=== PATIENT | male | born 1950 | race Caucasian/White ===

== ENCOUNTER 2024-04-05 20:55 | Inpatient (IN) | payer OTHER ==
[2024-04-05] MEDS ORDERED: ONDANSETRON 4 MG/2 ML VIAL ONE (22:04)
[2024-04-05 22:11] LABS: Absolute Eosinophils 0.2 K/uL (0-0.5); Absolute Lymphocytes (CBC) 1.3 K/uL (0.7-4.9); Absolute Monocytes 0.8 K/uL (0.1-1.3); Absolute Neutrophil 3.6 K/uL (1.8-8.0); Basophils % 0.3 % (0-1.3); Eosinophils % 4.1 % (0-4.4); Hematocrit 43.3 % (39.6-49.0); Hemoglobin 14.7 g/dL (13.6-17.9); Lymphocytes % 22.1 % (15.3-44.8); MCH 32.2 pg (27.0-35.0); MCHC 33.8 g/dL (32.0-36.0); MCV 95.2 fL (80-100); Monocytes % 13.1 % (3.3-12.3); Neutrophils % 60.4 % (41.7-73.7); Nucleated Red Blood Cells % 0.4 % (0-0); Platelets 249 thou/uL (152-406); RBC Red Blood Cell Count 4.55 M/uL (4.33-5.43); Red Cell Distribution Width 12.8 % (12.1-15.2)
[2024-04-05 22:31] LABS: Albumin 3.8 g/dL (3.4-5.0); Albumin/Globulin Ratio 1.1 (1.1-1.8); Anion Gap 7.1 mEq/L (5.0-15.0); Bilirubin Total 0.3 mg/dL (0.2-1.0); Globulin 3.5 g/dL (2.3-3.5); Potassium 4.1 mEq/L (3.5-5.1); Protein, Total 7.3 g/dL (6.4-8.2)
[2024-04-05 23:11] LABS: Specific Gravity 1.029 (1.005-1.030); Sqamous Epithelial None Seen /HPF (None Seen); Urine Bacteria None Seen /HPF (<20); Urine Clarity Extremely Turbid (Clear); Urine Color Dark-Red (Yellow); Urine Culture Reflex Order REFLEXED; Urine Glucose Trace (Negative); Urine Microscopic Reflex YN ORDER UMIC; Urine RBC >50 /HPF (None Seen); Urine WBC >50 /HPF (<5)
[2024-04-05 23:12] LABS: Urine Bilirubin Negative (Negative); Urine Blood 3+ (OVER) (Negative); Urine Ketones Negative (Negative); Urine Nitrite Negative (Negative); Urine Protein 3+ (Negative); Urine Urobilinogen Normal (Normal); Urine pH 6.5 (5.0-7.0)
--- NOTE | 2024-04-06 00:57 | ER ---
Nurse's Notes [facility] Name: Lavell Bellamy Age: 73 yrs Sex: Male : 1950 Arrival Date: 04/05/2024 Time: 20:55 Bed 7 Private MD: Diagnosis: Gross hematuria-active bladder, bleeding Presentation: 04/05 21:10 Chief complaint: Patient states: working in the yard and house with chemicals this bm8 weekend, but at shower time tonight 1900i started urinating blood. it doesn't hurt. Coronavirus screen: Vaccine status: Patient reports receiving the 2nd dose of the covid vaccine. At this time, the client does not indicate any symptoms associated with coronavirus-19. Ebola Screen: Patient negative for fever greater than or equal to 101.5 degrees Fahrenheit, and additional compatible Ebola Virus Disease symptoms Patient denies exposure to infectious person. Patient denies travel to an Ebola-affected area in the 21 days before illness onset. No symptoms or risks identified at this time. Initial Sepsis Screen: Does the patient meet any 2 criteria? No. Patient's initial sepsis screen is negative. Does the patient have a suspected source of infection? No. Patient's initial sepsis screen is negative. Risk Assessment: Do you want to hurt yourself or someone else? Patient reports no desire to harm self or others. Onset of symptoms was April 05, 2024 at 19:00. 21:10 Method Of Arrival: Ambulatory bm8 21:10 Acuity: JOHANNY 3 bm8 Triage Assessment: 21:12 General: Appears in no apparent distress. comfortable, Behavior is calm, cooperative, bm8 appropriate for age. Pain: Denies pain. EENT: No deficits noted. No signs and/or symptoms were reported regarding the EENT system. Neuro: No deficits noted. Level of Consciousness is awake, alert, obeys commands, Oriented to person, place, time, situation. Cardiovascular: Denies chest pain, lightheadedness, Capillary refill < 3 seconds Patient's skin is warm and dry. Respiratory: Airway is patent Respiratory effort is even, unlabored, Respiratory pattern is regular, symmetrical. GI: No signs and/or symptoms were reported involving the gastrointestinal system. : Reports blood in urine. Derm: No signs and/or symptoms reported regarding the dermatologic system. Musculoskeletal: No signs and/or symptoms reported regarding the musculoskeletal system. Historical: - Allergies: 21:12 "ex wives"; bm8 - Home Meds: 21:12 valacyclovir 500 mg oral tablet daily [Active]; aspirin 81 mg Oral capsule [Active]; bm8 hydrochlorothiazide 25 mg Oral tablet [Active]; lisinopril 20 mg Oral tablet [Active]; - PMHx: 21:12 Hypertensive disorder; bm8 - PSHx: 21:12 hernia repair; bm8 - Immunization history:: Adult Immunizations up to date. - Infectious Disease History:: Denies. - Social history:: Smoking status: Patient denies any tobacco usage or history of. Patient uses alcohol, Patient/guardian denies using street drugs. Screenin:57 [facility] ED Fall Risk Assessment (Adult) History of falling in the last 3 months, pc2 including since admission No falls in past 3 months (0 pts). Abuse screen: Denies threats or abuse. Denies injuries from another. Nutritional screening: No deficits noted. Tuberculosis screening: No symptoms or risk factors identified. Assessment: 21:40 General: Appears in no apparent distress. comfortable, well groomed. Pain: Denies pain. pc2 Neuro: No deficits noted. Level of Consciousness is awake, alert, obeys commands, Oriented to person, place, time, situation, Appropriate for age Speech is normal. Cardiovascular: Denies chest pain, Capillary refill < 3 seconds Patient's skin is warm and dry. Respiratory: Airway is patent Respiratory effort is even, unlabored, Respiratory pattern is regular, symmetrical. GI: No signs and/or symptoms were reported involving the gastrointestinal system. : Urine is ortega blood, Reports noticed blood after urinating this afternoon. 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 Derm: No signs and/or symptoms reported regarding the dermatologic system. Musculoskeletal: No signs and/or symptoms reported regarding the musculoskeletal system. 22:38 Reassessment: No changes from previously documented assessment. Patient and/or family pc2 updated on plan of care and expected duration. Pain level reassessed. Patient is alert, oriented x 3, equal unlabored respirations, skin warm/dry/pink. Patient denies pain at this time. Respiratory: Airway is patent Respiratory effort is even, unlabored, Respiratory pattern is regular, symmetrical. 23:13 Reassessment: Pt ambulated to restroom at this time with steady gait. NAD noted. pc2 23:53 Reassessment: Patient appears in no apparent distress at this time. No changes from tm6 previously documented assessment. Vital Signs: 21:10 BP 188 / 92; Pulse 96; Resp 18; Temp 97.7; Pulse Ox 98% ; Weight 74.84 kg; Height 5 ft. bm8 6 in. ; Pain 0/10; 21:47 BP 157 / 92; Pulse 89; Resp 18; Pulse Ox 97% on R/A; pc2 22:38 BP 142 / 79; Pulse 85; Resp 18; Pulse Ox 95% on R/A; pc2 04/06 00:55 BP 153 / 79; Pulse 75; Resp 18; Pulse Ox 96% on R/A; pc2 01:43 BP 153 / 79; Pulse 78; Pulse Ox 98% on R/A; Pain 0/10; tm6 02:52 BP 156 / 82; Pulse 75; Resp 18; Pulse Ox 96% on R/A; pc2 04/05 21:10 Body Mass Index 26.63 (74.84 kg, 167.64 cm) bm8 04/05 21:10 Pain Scale: Adult bm8 01:43 Pain Scale: Adult tm6 ED Course: 04/05 21:01 Patient arrived in ED. ra3 21:07 Lisa Galo FNP-C [facility]. kb 21:07 Ang Corbin MD is Attending Physician. kb 21:12 Triage completed. bm8 21:12 Arm band placed on right wrist. bm8 21:34 Ophelia Manjarrez, RN is Primary Nurse. tm6 21:45 Inserted saline lock: 20 gauge in right antecubital area, using aseptic technique. pc2 Blood collected. 21:47 CBC with Diff Sent. pc2 21:47 CMP Sent. pc2 21:47 Lipase Sent. pc2 21:47 Urinalysis w/ reflexes Sent. pc2 21:57 Patient has correct armband on for positive identification. Bed in low position. Call pc2 light in reach. Side rails up X2. Provided Education on: POC and timeframe. 21:59 Primary Nurse role handed off by Ophelia Manjarrez, KATIE pc2 21:59 Sheyla bob, RN is Primary Nurse. pc2 23:43 CT Abd/Pelvis - IV Contrast Only In Process Unspecified. EDMS 04/06 00:55 Merrick Pablo MD is Hospitalizing Provider. ignacio 00:58 Ibarra cath inserted, using sterile technique, 16 Fr., by mt, balloon inflated, to tm6 gravity drainage, returned bloody urine. Patient tolerated well. Bladder irrigated via Iabrra with 1 liter normal saline returned ortega blood Patient tolerated well. 01:21 EKG done, by ED staff, reviewed by Ang Corbin MD. tm6 01:33 PT-INR Sent. pc2 01:47 Chest Single View XRAY In Process Unspecified. EDMS 02:36 Bladder irrigated via Ibarra with 1 liter normal saline returned ortega blood Patient tm6 tolerated well. 04:21 No provider procedures requiring assistance completed. Patient admitted, IV remains in tm6 place. Administered Medications: 04/05 22:08 Drug: Ondansetron IVP 4 mg IVP once; over 2 minutes Route: IVP; Site: right antecubital;pc2 22:31 Follow up: Response: No adverse reaction; Marked relief of symptoms pc2 04/06 01:20 Drug: NS 0.9% IV 1000 ml IV at 1 bolus Per protocol; 1000 mL bolus Route: IV; Rate: 1 pc2 bolus; Site: right antecubital; 04:02 Follow up: Response: No adverse reaction; IV Status: Infusion continued upon admission pc2 01:25 Drug: Rocephin IV 1 grams IV at per protocol once; Given slow IV push per pharmacy pc2 instructions Route: IV; Rate: per protocol; Site: right antecubital; 01:30 Follow up: Response: No adverse reaction; IV Status: Completed infusion; IV Intake: [id number] Medication: 04/05 21:58 VIS not applicable for this client. pc2 Intake: 04/06 01:30 IV: 10ml; Total: 10ml. pc2 Outcome: 00:57 Decision to Hospitalize by Provider. ignacio 04:21 Admitted to Med/surg accompanied by stevie, tm6 04:21 Condition: stable 04:21 Instructed on the need for admit, 04:22 Patient left the ED. tm6 Signatures: Dispatcher [facility] Lisa Galo, MATERIAL DISPOSITION INSPECTOR-C KATIA-Ang Arthur MD MD cha Masterson, Tawney, RN RN tm6 Tierra Delgadillo ra3 Miguel Angel Chavez, RN RN bm8 Sheyla bob, RN RN pc2 Corrections: (The following items were deleted from the chart) 01:15 0616 23:53 BP 164 / 88; Pulse 86bpm; Pulse Ox 95% RA; Pain 0/10, Adult; tm6 pc2
--- NOTE | 2024-04-06 00:57 | EDPHYS ---
Physician Documentation [facility] Name: Lavell Bellamy Age: 73 yrs Sex: Male : 1950 Arrival Date: 04/05/2024 Time: 20:55 Bed 7 Private MD: ED Physician Ang Corbin HPI: 04/05 22:06 This 73 yrs old Male presents to ER via Ambulatory with complaints of Urinary Problem - kb blood in urine. 22:06 Patient is a 73-year-old male who presents for hematuria that started just prior to kb arrival. Denies dysuria, abdominal pain, flank pain, fever. States this is never happened before. Reports he did notice some nausea and decreased appetite at dinner. Historical: - Allergies: 21:12 "ex wives"; bm8 - Home Meds: 21:12 valacyclovir 500 mg oral tablet daily [Active]; aspirin 81 mg Oral capsule [Active]; bm8 hydrochlorothiazide 25 mg Oral tablet [Active]; lisinopril 20 mg Oral tablet [Active]; - PMHx: 21:12 Hypertensive disorder; bm8 - PSHx: 21:12 hernia repair; bm8 - Immunization history:: Adult Immunizations up to date. - Infectious Disease History:: Denies. - Social history:: Smoking status: Patient denies any tobacco usage or history of. Patient uses alcohol, Patient/guardian denies using street drugs. ROS: 22:06 Constitutional: As per HPI kb Exam: 22:06 Constitutional: This is a well developed, well nourished patient who is awake, alert, kb and in no acute distress. Head/Face: Normocephalic, atraumatic. ENT: Moist Mucous membranes Cardiovascular: Regular rate Respiratory: Respirations even and unlabored. No increased work of breathing. Talking in full sentences Abdomen/GI: Soft, non-tender. No distention Skin: Warm, dry with normal turgor. Normal color. MS/ Extremity: Pulses equal, no cyanosis. Neurovascular intact. Full, normal range of motion. Neuro: Awake and alert, GCS 15, oriented to person, place, time, and situation. Moves all extremities. Normal gait. 04/06 01:48 ECG was reviewed by the Attending Physician. [facility] Vital Signs: 04/05 21:10 BP 188 / 92; Pulse 96; Resp 18; Temp 97.7; Pulse Ox 98% ; Weight 74.84 kg; Height 5 ft. bm8 6 in. ; Pain 0/10; 21:47 BP 157 / 92; Pulse 89; Resp 18; Pulse Ox 97% on R/A; pc2 22:38 BP 142 / 79; Pulse 85; Resp 18; Pulse Ox 95% on R/A; pc2 04/06 00:55 BP 153 / 79; Pulse 75; Resp 18; Pulse Ox 96% on R/A; pc2 01:43 BP 153 / 79; Pulse 78; Pulse Ox 98% on R/A; Pain 0/10; tm6 02:52 BP 156 / 82; Pulse 75; Resp 18; Pulse Ox 96% on R/A; pc2 04/05 21:10 Body Mass Index 26.63 (74.84 kg, 167.64 cm) bm8 04/05 21:10 Pain Scale: Adult bm8 01:43 Pain Scale: Adult tm6 MDM: 04/05 21:07 Patient medically screened. 04/06 00:48 Data reviewed: vital signs, nurses notes. Transition of care: After a detail discussion kb of the patient's case, care is transferred to Ang Corbin MD. 04/05 21:18 Order name: CBC with Diff; Complete Time: 22:24 kb 04/05 21:18 Order name: CMP; Complete Time: 22:58 kb 04/05 21:18 Order name: Lipase; Complete Time: 22:58 kb 04/05 21:18 Order name: Urinalysis w/ reflexes; Complete Time: 23:15 kb 04/05 23:15 Order name: Urine Culture [facility] 04/06 01:00 Order name: PT-INR [facility] 04/06 02:25 Order name: Urinalysis w/ reflexes EDDE 04/06 02:25 Order name: CBC with Automated Diff EDDE 04/06 02:25 Order name: CBC with Automated Diff [facility] 04/06 02:25 Order name: Comprehensive Metabolic Panel [facility] 04/06 02:25 Order name: Comprehensive Metabolic Panel [facility] 04/05 21:20 Order name: CT Abd/Pelvis - IV Contrast Only 04/06 01:00 Order name: Chest Single View XRAY [facility] 04/06 02:24 Order name: CONS Physician Consult [facility] 04/05 21:18 Order name: IV Saline Lock; Complete Time: 21:47 kb 04/05 21:18 Order name: Labs collected and sent; Complete Time: 21:47 kb 04/06 00:55 Order name: Misc. Order: irrigate cunha until clear; Complete Time: 02:36 ignacio 04/06 01:00 Order name: EKG - Nurse/Tech; Complete Time: 01:21 ignacio 04/06 01:00 Order name: NPO; Complete Time: 01:34 ignacio EC:48 Rate is 72 beats/min. Rhythm is regular. QRS [place] is Normal. LA interval is normal. QRS ignacio interval is normal. QT interval is normal. No Q waves. T waves are Normal. No ST changes noted. Clinical impression: Normal ECG and No evidence of ischemia. Interpreted by me. Reviewed by me. Administered Medications: 04/05 22:08 Drug: Ondansetron IVP 4 mg IVP once; over 2 minutes Route: IVP; Site: right antecubital;pc2 22:31 Follow up: Response: No adverse reaction; Marked relief of symptoms pc2 04/06 01:20 Drug: NS 0.9% IV 1000 ml IV at 1 bolus Per protocol; 1000 mL bolus Route: IV; Rate: 1 pc2 bolus; Site: right antecubital; 04:02 Follow up: Response: No adverse reaction; IV Status: Infusion continued upon admission pc2 01:25 Drug: Rocephin IV 1 grams IV at per protocol once; Given slow IV push per pharmacy pc2 instructions Route: IV; Rate: per protocol; Site: right antecubital; 01:30 Follow up: Response: No adverse reaction; IV Status: Completed infusion; IV Intake: [id number] Disposition: 01:47 Co-signature as Attending Physician, Ang Corbin MD I agree with the assessment and ignacio plan of care. Disposition Summary: 04/06/24 00:57 Hospitalization Ordered Notes: Hospitalization Status: Inpatient Admission ignacio Provider: Merrick aPblo cha Location: Telemetry/MedSurg (Inpatient) ignacio Condition: Stable ignacio Problem: new ignacio Symptoms: have improved ignacio Bed/Room Type: Standard ignacio Room Assignment: 220(04/06/24 02:45) kmf Diagnosis - Gross hematuria - active bladder, bleeding ignacio Forms: - Medication Reconciliation Form ignacio - SBAR form ignacio - Leadership Thank You Letter ignacio Signatures: Dispatcher [employer] Lisa Hays FNP-C ORIENTOR-Ang Arthur MD MD cha Forrester, Kelsey Maroul [facility] Miguel Angel Chavez, RN RN bm8 Sheyla bob, RN RN pc2 Corrections: (The following items were deleted from the chart) 04/05 22:07 22:06 Patient is a 73-year-old male who presents for hematuria that started just prior kb to arrival. Denies dysuria, abdominal pain, flank pain, fever. States this is never happened before.. kb 04/06 01:01 01:01 PROTIME (+INR)+COAG.LAB.BRZ ordered. EDMS EDMS 01:01 01:01 Chest Single View+RAD.RAD.BRZ ordered. EDMS EDMS 02:45 00:57 ignacio rojas
[2024-04-06] MEDS ORDERED: CEFTRIAXONE 1000 MG/VIAL ONE (01:03)
[2024-04-06] MEDS ORDERED: NA CHLORIDE 0.9% 1,000 ML ONE (01:04)
[2024-04-06 02:07] LABS: PT Prothrombin Time 10.8 SECONDS (9.5-12.5); Protime INR 0.98
[2024-04-06] MEDS ORDERED: ONDANSETRON 4 MG/2 ML VIAL IV PRN (02:19)
--- NOTE | 2024-04-06 02:24 | P.HP ---
Certification for Inpatient Patient admitted to: Inpatient With expected LOS: >2 Midnights Practitioner: I am a practitioner with admitting privileges, knowledge of patient current condition, hospital course, and medical plan of care. Services: Services provided to patient in accordance with Admission requirements found in Title 42 Section 412.3 of the Code of Federal Regulations Patient History Date of Service: 04/06/24 Reason for admission: Hematuria History of Present Illness: 73 yrs old Male with past medical history of hypertension, and hyperlipidemia who was brought to ER with hematuria. Patient denies any abdominal pain or any trauma. Does not take any at that blood thinners other than aspirin 81. Denies any chest pain or shortness of breath. Started all of a sudden as he was moving the yard . Did not have any dysuria. No fever or chills. No recent travel. Patient noticed blood-tinged urine in the commode and was brought to ER. Patient states that he has some nausea but no vomiting. Patient was assessed in the ER and was admitted for further management of gross hematuria Allergies No Known Allergies Allergy (Unverified 04/06/24 03:02) Home medications list reviewed: Yes Home Medications: Aspirin [Aspirin EC 81 MG] 1 tab PO DAILY 04/06/24 Lisinopril [Zestril] 20 mg PO DAILY 04/06/24 Valacyclovir [Valtrex*] 1 tab PO DAILY 04/06/24 hydroCHLOROthiazide [Hydrodiuril] 25 mg PO DAILY 04/06/24 - Past Medical/Surgical History Past Medical History: Reviewed- Non-Contributory -: Hypertension Past Surgical History: Reviewed- Non-Contributory - Family History Family History: Reviewed- Non-Contributory - Social History Smoking Status: Current some day smoker Review of Systems 10-point ROS is otherwise unremarkable Physical Examination - Vital Signs Temperature: 97.4 F Blood Pressure: 180/82 Pulse: 76 Respirations: 18 Pulse Ox (%): 94 - Physical Exam General: Alert, In no apparent distress, Oriented x3, Obese HEENT: Atraumatic, Normocephalic Neck: Supple, 2+ carotid pulse no bruit Respiratory: Clear to auscultation bilaterally, Normal air movement Cardiovascular: No edema, Normal pulses, Regular rate/rhythm, Normal S1 S2 Capillary refill: <2 Seconds Gastrointestinal: Soft and benign, W/out hepatosplenomegaly, No ascites, No tenderness Musculoskeletal: No clubbing, No swelling Integumentary: No rashes, No breakdown Neurological: Normal speech, Normal strength at 5/5 x4 extr, Sensation intact, Cranial nerves 3-12 intact, Normal reflexes 2+ Lymphatics: No axilla or inguinal lymphadenopathy Urinary: Ibarra catheter - Studies Laboratory Data (last 24 hrs) 04/06/24 04/05/24 04/05/24 01:20 21:45 21:45 WBC 5.90 Hgb 14.7 Hct 43.3 Plt Count 249 PT 10.8 INR 0.98 Sodium 139 Potassium 4.1 BUN 29 H Creatinine 1.09 Glucose 116 H Total Bilirubin 0.3 AST 12 L ALT 31 Alkaline Phosphatase 63 Lipase 65 Assessment and Plan - Problems (Diagnosis) (1) Hematuria Current Visit: Yes Status: Acute Plan: Hematuria Ibarra was placed ER already consulted Dr. Garcia Will keep n.p.o. for now IV fluids H&H monitor serially Transfuse as needed CT abdomen pelvis pending Will add on Rocephin for possible UTI Will obtain urine culture Hypertension Continue home medications and titrate as needed GI/DVT prophylaxis Advanced directive full code Discharge Plan: Home Plan to discharge in: 48 Hours - Advance Directives Does patient have a Living Will: No Does patient have a Durable POA for Healthcare: No - Code Status/Comfort Care Code Status: Full Code Time Spent Managing Pts Care (In Minutes): 48
[2024-04-06] MEDS: CEFTRIAXONE 1,000 MG in NA CHLORIDE 0.9% 50 ML IVPB SCH ×2 (02:25→20:11)
[2024-04-06] MEDS: NA CHLORIDE 0.9% 1,000 ML IV SCH (03:00)
[2024-04-06] MEDS: ACETAMINOPHEN 325 MG TABLET PO PRN (03:01)
[2024-04-06] MEDS ORDERED: ACETAMINOPHEN 325 MG TABLET ONE (03:03)
[2024-04-06 05:34] VITALS: BMI 26.6
[2024-04-06] MEDS: CEFTRIAXONE 1,000 MG in NA CHLORIDE 0.9% 50 ML IVPB ONE (05:44)
--- NOTE | 2024-04-06 10:25 | RAD REPORT ---
EXAM DESCRIPTION: ADDENDUM #1 THIS REPORT CONTAINS FINDINGS THAT MAY BE CRITICAL TO PATIENT CARE: I communicated the above findings by telephone with Dr. Ang Corbin on 04/06/2024 12:03 AM CDT who demonstrated understanding of the above finding(s)/recommendation(s). Electronically signed by: January Menard MD 04/06/2024 12:03 AM CDT RP End of Addendum EXAM: CT Abdomen and Pelvis With Intravenous Contrast CLINICAL HISTORY: The patient is 73 years old and is Male; HEMATURIA TECHNIQUE: Axial computed tomography images of the abdomen and pelvis with intravenous contrast. S agittal and coronal reformatted images were created and reviewed. This CT exam was performed using one or more of the following dose reduction techniques: automated exposure control, adjustment of t he mA and/or kV according to patient size, and/or use of iterative reconstruction technique. COMPARISON: No relevant prior studies available. FINDINGS: LUNG BASES: Unremarkable. No mass. No consolidation. PLEURAL SPACE: Bilateral calcified pleural plaques are present. ABDOMEN: LIVER: The liver is enlarged and mildly fatty. GALLBLADDER AND BILE DUCTS: The gallbladder is contracted. No calcified gallstones or ductal dila tation is seen. PANCREAS: Mild fatty infiltration of pancreas is present. There is no ductal dilatation. SPLEEN: Unremarkable. ADRENALS: Unremarkable. No mass. KIDNEYS AND URETERS: Unremarkable. The kidneys enhance symmetrically. No obstructing renal or ure teral calculus is seen. No hydronephrosis or hydroureter. No perinephric fluid or stranding. On delay ed images, contrast is seen throughout the ureters. STOMACH AND BOWEL: The stomach is distended with food contents and air. The small bowel is relati vely normal in caliber. A moderate amount of stool is present throughout the colon. There is no mucos al thickening or evidence of obstruction. PELVIS: APPENDIX: The appendix is normal in caliber without surrounding inflammation. BLADDER: Large amount of high-density material is noted within the bladder with suggestion of aviva sh of contrast. REPRODUCTIVE: Unremarkable as visualized. ABDOMEN and PELVIS: INTRAPERITONEAL SPACE: Unremarkable. No free air. No significant fluid collection. BONES/JOINTS: Bilateral pars defects are present at L5 with grade 1 anterolisthesis. Minimal dege nerative change is noted. SOFT TISSUES: There are small bilateral fat containing inguinal hernias. VASCULATURE: Atherosclerosis of the vasculature is present. The vessels are normal in caliber. No abdominal aortic aneurysm. LYMPH NODES: Unremarkable. No enlarged lymph nodes. IMPRESSION: High-density material within the bladder with suggestion of blush of contrast. Findings suggest blood products with possible active bleeding. A discrete mass is not seen though limited in e valuation given the significant amount of blood products present. Underlying mass is within the diffe rential. Recommend urology follow-up. Electronically signed by: January Menard MD 04/05/2024 11:58 PM CDT RP Due to temporary technical issues with the PACS/Fluency reporting system, reports are being signed by the in house radiologist without review as a courtesy to ensure prompt reporting. The interpreting r adiologist is fully responsible for the content of the report.
--- NOTE | 2024-04-06 11:13 | RAD REPORT ---
EXAM DESCRIPTION: XR Chest, 1 View CLINICAL HISTORY: The patient is 73 years old and is Male; ABDOMINAL DISTENTION TECHNIQUE: Frontal view of the chest. COMPARISON: No relevant prior studies available. FINDINGS: Lungs: Suggestion of a 7 mm calcified granuloma overlying the upper right lung. No consolidation. Pleural space: Blunting of the right costophrenic angle which may indicate a right pleural effusi on. The left costophrenic angle is partially visualized. No pneumothorax. Heart: Unremarkable. Mediastinum: Unremarkable. Normal mediastinal contour. Bones/joints: No acute findings. IMPRESSION: Blunting of the right costophrenic angle which may indicate a right pleural effusion. Electronically signed by: Demetrius Davis MD 04/06/2024 02:08 AM CDT RP 8 Due to temporary technical issues with the PACS/Fluency reporting system, reports are being signed by the in house radiologist without review as a courtesy to ensure prompt reporting. The interpreting r adiologist is fully responsible for the content of the report.
--- NOTE | 2024-04-06 14:52 | EKG ---
Test Date: 2024-04-06 Test Time: 01:11:11 Personnel Records Clerk: BERNARD MEASUREMENT RESULTS: Intervals: Rate: 72 TN: 166 QRSD: 92 QT: 380 QTc: 416 [place]: P: 63 TN: 166 QRS: 23 T: 18 INTERPRETIVE STATEMENTS: Normal sinus rhythm Normal ECG No previous ECG available for comparison Electronically Signed On 04-06-24 14:50:43 CDT by Jeremiah Reza
--- NOTE | 2024-04-06 20:06 | P.PN ---
Date of Service: 04/06/24 Patient seen and examined. Ibarra catheter is in place. He still has hematuria but no clots. No retention at the moment. Patient denies any pain. Case discussed with Dr. Garcia who recommend outpatient follow-up if no acute retention or drop in hemoglobin. Monitor H&H Maintain Ibarra catheter Empiric IV Rocephin. IV hydration Monitor urine output. Waiting for hematuria to clear for discharge.
[2024-04-07 07:12] LABS: Absolute Eosinophils 0.1 K/uL (0-0.5); Absolute Lymphocytes (CBC) 0.8 K/uL (0.7-4.9); Absolute Monocytes 0.7 K/uL (0.1-1.3); Basophils % 0.7 % (0-1.3); Eosinophils % 1.9 % (0-4.4); Hematocrit 35.8 % (39.6-49.0); Hemoglobin 12.3 g/dL (13.6-17.9); Lymphocytes % 11.8 % (15.3-44.8); MCH 32.8 pg (27.0-35.0); MCHC 34.4 g/dL (32.0-36.0); MCV 95.4 fL (80-100); MPV 8.4 fL (7.6-11.3); Monocytes % 11.1 % (3.3-12.3); Neutrophils % 74.5 % (41.7-73.7); Nucleated Red Blood Cells % 0.1 % (0-0); Platelets 212 thou/uL (152-406); RBC Red Blood Cell Count 3.75 M/uL (4.33-5.43); Red Cell Distribution Width 13.2 % (12.1-15.2)
[2024-04-07 07:25] LABS: Albumin 2.9 g/dL (3.4-5.0); Anion Gap 5.2 mEq/L (5.0-15.0); Bilirubin Total 0.5 mg/dL (0.2-1.0); Globulin 2.8 g/dL (2.3-3.5); Potassium 4.2 mEq/L (3.5-5.1); Protein, Total 5.7 g/dL (6.4-8.2)
--- NOTE | 2024-04-07 10:27 | P.PN ---
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 vitals reviewed. Problem List: Hematuria Hypertension Hyperlipidemia Hematuria Presented with sudden onset hematuria that started at home spontaneously. Denies any trauma. No prior episodes. painless Denies dysuria/fever/chills. Reports some nausea without vomiting. Ibarra placed in ED 04/06. Monitor urine output continue IV fluids Pain control continue empiric rocephin (04/06-) given rocephin in ED. urine cx (04/05): prelim no growth afebrile, no leukocytosis Urology consulted to eval today Hypertension Hyperlipidemia confirm home meds, restart as appropriate VTE: Ambulatory Code: Full Dispo: Home, ~1-2 days Pending urology recs / hematuria improves anticipate will need cystoscopy outpatient
[2024-04-07] MEDS: LIDOCAINE JELLY 2% 5 ML SYRINGE TOP ONE (14:53)
--- NOTE | 2024-04-07 15:44 | P.CNS ---
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 He denied any antecedent dysuria, fevers or chills, but he did have some nausea in the absence of vomiting. He denies any perineal pain prior to this occurring either. Social history: He worked for 29 years at [employer], to which he was exposed frequently, and he also smoked for 15 years more than 2 packs/day on average In the ER, they placed a 16 [place]utanese Ibarra catheter and decompressed his bladder, but because of the persistent gross hematuria, he was admitted. Since that t karina, he has had intermittent episodes of obstruction due to clots that is required irrigation by the floor nurses. He has been placed on ceftriaxone. 04/05/2024 CT abdomen and pelvis with IV contrast and delayed phase: Kidneys enhance symmetrically without ureteral or renal calculus, hydronephrosis or hydroureter, and no renal masses or perinephric stranding. Per the radiologist "on delayed images, contrast is seen throughout the ureters". Impression: High density material within the bladder suggestive of blush of contrast. A discrete mass is not seen though limited in evaluation because of the blood products present. 04/07/2024 WBC 6.7, hemoglobin 12.3, platelets 212, creatinine 0.86, LFTs/alk phos within normal limits 04/06/2024 INR 0.98 04/05/2024 UA micro 3+ heme, negative nitrite/leukocyte Estrace, > 50 WBCs/RBCs per hpf. Urine culture no growth to date Examination: Patient well-appearing and in no acute distress Alert, awake, oriented x 3 with some diminished hearing No dyspnea or sign of respiratory distress Abdomen nontender Genitalia: Circumcised without lesion, orthotopic meatus patent with 16 Bhutanese urethral Ibarra catheter present draining dark gross hematuria. Urethral Ibarra catheter exchange and bladder irrigation procedure note: Because the 16 [place]ut[place] catheter was inadequate to adequately irrigate his bladder, I deflated the balloon and remove the 16 Bh[place]anese catheter. I then used Betadine to prep his genitalia and draped it in standard fashion before applying lidocaine intraurethrally Uro-Jet local anesthesia. I then passed a 22 Bhutanese three-way Ibarra catheter via his urethra into his bladder with ease. Thereafter, I irrigated his bladder copiously with about 1500 cc of sterile saline removing a modest amount of formed clot. Once most of the clot was removed, I aggressively irrigated the bladder to remove any residual stuck to the sidewalls of the bladder, and once I was done, the efflux of urine was crystal clear. As such, the three-way port was capped, and the catheter connected to a floor bag. Assessment and recommendation: 73-year-old physically active gentleman with hypertension, hyperlipidemia and asbestosis on ASA 81 alone, extensive chemical and smoking history (> 30 pack years) with painless gross hematuria causing clot retention in the setting of negative cultures and upper tract imaging. -At this point, would observe the patient over the course of the next 24 hours with a catheter to gravity drainage. -Should there be recurrence of significant gross hematuria, nurses may irrigate the Ibarra catheter with 60 cc NS, instilling and aspirating back to remove any clots, and repeat as necessary until the urine is light pink to clear. Should there be recurrence of gross hematuria requiring multiple manual irrigations, please notify me, and we will consider initiating CBI. The cystoscopy tubing and split-Y tubing was left in the room should that become necessary. CBI would be initiated in that case with NS only. -As long as the urine remains clear or minimally pink, a voiding trial may be accomplished tomorrow morning. To complete the voiding trial, the catheter should be retrograde filled with at least 200 cc of sterile H2O/NS until patient expresses a strong sense of urge to void (up to 400 cc max), before deflating the balloon of the 20 cc instilled and removing the catheter, leaving the instilled fluid inside. Patient should then be given a urinal and allowed to void. If he is unable to void > 60% of the volume instilled, recommend immediately replace a new 18 Bhutanese coud tipped Ibarra catheter. In that case, discharge the patient home with a catheter, initiate Flomax 0.4 mg daily, and we will follow it up as an outpatient. -Either way, the patient will require cystoscopic evaluation as an outpatient within the next 3 weeks. Allergies No Known Allergies Allergy (Unverified 04/06/24 03:02) Home Medications: Aspirin [Aspirin EC 81 MG] 1 tab PO DAILY 04/06/24 Lisinopril [Zestril] 20 mg PO DAILY 04/06/24 Valacyclovir [Valtrex*] 1 tab PO DAILY 04/06/24 hydroCHLOROthiazide [Hydrodiuril] 25 mg PO DAILY 04/06/24 - Past Medical/Surgical History Diabetic: No -: Hypertension - Social History Place of Residence: Home Physical Examination Temp Pulse Resp BP Pulse Ox 99.3 F 74 16 153/85 H 96 04/07/24 11:59 04/07/24 14:23 04/07/24 11:59 04/07/24 14:23 04/07/24 11:59 - Problems (1) Gross hematuria Current Visit: Yes Status: Acute (2) Clot retention of urine Current Visit: Yes Status: Acute (3) Stopped smoking with greater than 30 pack year history Current Visit: Yes Status: Acute Conclusions/Impression: see A&P in [facility] Critical Care: No Time Spent Managing Pts care (In Minutes): 60
[2024-04-07] MEDS: MORPHINE 4 MG/ML SYR IV PRN (20:16)
[2024-04-08 07:49] LABS: Absolute Eosinophils 0.2 K/uL (0-0.5); Absolute Lymphocytes (CBC) 0.9 K/uL (0.7-4.9); Absolute Monocytes 0.9 K/uL (0.1-1.3); Absolute Neutrophil 5.4 K/uL (1.8-8.0); Basophils % 0.7 % (0-1.3); Eosinophils % 2.1 % (0-4.4); Hematocrit 37.7 % (39.6-49.0); Hemoglobin 12.8 g/dL (13.6-17.9); Lymphocytes % 12.3 % (15.3-44.8); MCH 32.3 pg (27.0-35.0); MCHC 33.9 g/dL (32.0-36.0); MCV 95.3 fL (80-100); MPV 8.9 fL (7.6-11.3); Monocytes % 11.6 % (3.3-12.3); Neutrophils % 73.3 % (41.7-73.7); Platelets 215 thou/uL (152-406); RBC Red Blood Cell Count 3.96 M/uL (4.33-5.43)
[2024-04-08 07:50] LABS: Anion Gap 6.7 mEq/L (5.0-15.0); Magnesium 2.2 mg/dL (1.6-2.4); Potassium 3.7 mEq/L (3.5-5.1)
[2024-04-08] MEDS: hydroCHLOROthiazide 25 MG TAB PO SCH (09:13)
[2024-04-08] MEDS: VALACYCLOVIR 500 MG TAB PO SCH (09:13)
[2024-04-08] MEDS: lisinopriL 20 MG TAB PO SCH (09:13)
[2024-04-08 10:03] VITALS: O2SAT 93
[2024-04-08 11:37] VITALS: BP 151/88; TEMP 99.2
--- NOTE | 2024-04-09 06:42 | P.DS ---
Admission Date: 04/06/24 Discharge Date: 04/08/24 Disposition: ROUTINE DISCHARGE Discharge Condition: GOOD Reason for Admission: Hematuria Consultations: Urology - Dr. Garcia Brief History of Present Illness: 73 yo M, PMH: hypertension, and hyperlipidemia Patient was brought to ER with hematuria. Patient denies any abdominal pain or any trauma. Does not take any at that blood thinners other than aspirin 81. Denies any chest pain or shortness of breath. Started all of a sudden as he was moving the yard . Did not have any dysuria. No fever or chills. No recent travel. Patient noticed blood-tinged urine in the commode and was brought to ER. Patient states that he has some nausea but no vomiting. Patient was assessed in the ER and was admitted for further management of gross hematuria Hospital Course: Problem List: Spontaneous, painless Hematuria, improved Hypertension Hyperlipidemia Physician discharge instructions: Patient presented to ED with sudden onset hematuria. CT abdomen with findings to suggest blood products with possible active bleeding within the bladder. Cunha was placed in ED. He was empirically treated with IV rocephin, and remained afebrile, urine culture was without growth. No antibiotic needed on discharge, he completed 3 days total. Urology was consulted. Dr. Garcia exchanged the cunha catheter at bedside and was able to remove a significant amount of formed clot with bladder irrigation on 04/07 and hematuria cleared up. Patient had voiding trial on day of discharge and was able to void 300 ml (~85%) NS/sterile water and was minimally light pink in color initially and cleared up. Patient is to follow up with him in office within the next 3 weeks for planned cystoscopy for further evaluation of cause of bleeding. Patient was feeling better, hematuria improved and was deemed stable for discharge. Discussed may have some light pink blood tinged urine intermittently. Advised to rest / take it easy for a few days.spontan Medications: no new medications. hold aspirin for 2 days. Follow up: PCP 3-[address] Garcia within 3 weeks Please call to schedule / confirm appointments Physical Exam: GEN: Alert, oriented, NAD HEENT: Normal conjunctiva, sclera anicteric, CV: Regular rate and rhythm, no edema Pulm: Nonlabored respirations on room air, clear bilaterally ABD: soft, nontender, nondistended Neuro: Normal speech, normal affect Vital Signs/Physical Exam: Temp Pulse Resp BP Pulse Ox 99.2 F 84 19 151/88 H 95 04/08/24 11:21 04/08/24 11:21 04/08/24 11:21 04/08/24 11:21 04/08/24 11:21 Laboratory Data at Discharge: WBC 7.40 thou/uL (4.3-10.9) 04/08/24 07:12 Hgb 12.8 g/dL (13.6-17.9) L 04/08/24 07:12 Hct 37.7 % (39.6-49.0) L 04/08/24 07:12 Plt Count 215 thou/uL (152-406) 04/08/24 07:12 PT 10.8 SECONDS (9.5-12.5) 04/06/24 01:20 INR 0.98 04/06/24 01:20 Sodium 139 mEq/L (136-145) 04/08/24 07:12 Potassium 3.7 mEq/L (3.5-5.1) 04/08/24 07:12 BUN 10 mg/dL (7-18) 04/08/24 07:12 Creatinine 0.86 mg/dL (0.70-1.30) 04/08/24 07:12 Glucose 104 mg/dL (74-106) 04/08/24 07:12 Magnesium 2.2 mg/dL (1.6-2.4) 04/08/24 07:12 Total Bilirubin 0.5 mg/dL (0.2-1.0) 04/07/24 06:54 AST 13 U/L (15-37) L 04/07/24 06:54 ALT 26 U/L (16-61) 04/07/24 06:54 Alkaline Phosphatase 57 U/L (45-117) 04/07/24 06:54 Lipase 65 U/L (13-75) 04/05/24 21:45 Home Medications: Aspirin [Aspirin EC 81 MG] 1 tab PO DAILY 04/06/24 Lisinopril [Zestril] 20 mg PO DAILY 04/06/24 Valacyclovir [Valtrex*] 1 tab PO DAILY 04/06/24 hydroCHLOROthiazide [Hydrodiuril*] 25 mg PO DAILY 04/06/24 Physician Discharge Instructions: Physician discharge instructions: Patient presented to ED with sudden onset hematuria. CT abdomen with findings to suggest blood products with possible active bleeding within the bladder. Cunha was placed in ED. He was empirically treated with IV rocephin, and remained afebrile, urine culture was without growth. No antibiotic needed on discharge, he completed 3 days total. Urology was consulted. Dr. Garcia exchanged the cunha catheter at bedside and was able to remove a significant amount of formed clot with bladder irrigation on 04/07 and hematuria cleared up. Patient had voiding trial on day of discharge and was able to void 300 ml (~85%) NS/sterile water and was minimally light pink in color initially and cleared up. Patient is to follow up with him in office within the next 3 weeks for planned cystoscopy for further evaluation of cause of bleeding. Patient was feeling better, hematuria improved and was deemed stable for discharge. Medications: no new medications. hold aspirin for 2 days. Follow up: PCP 3-[address] Garcia within 3 weeks Please call to schedule / confirm appointments Followup: Mac Tompkins MD [Primary Care Provider] - 1-2 Weeks Ramesh Garcia [ACTIVE - CAN ADMIT] - (Follow up in 3 weeks) Time spent managing pt's care (in minutes): 45
== END 2024-04-08 12:25 | disposition home or self-care (01) | DRG 700 ==
LOC: ER 20:55 → 2ND 04-06 02:19
PROVIDERS: ADMIT Family Medicine; ATTEND Hospitalist
PROC: 0T9B70Z Drainage of Bladder with Drainage Device, Via Natural or Artificial Opening (ICD-10-PCS; principal; 2024-04-06)
DX: N32.89 Other specified disorders of bladder (principal); I10 Essential (primary) hypertension; E78.5 Hyperlipidemia, unspecified; F17.200 Nicotine dependence, unspecified, uncomplicated; R31.0 Gross hematuria; R33.8 Other retention of urine; Z79.82 Long term (current) use of aspirin; Z79.899 Other long term (current) drug therapy
CPT/HCPCS: 36415; 51700; 51702; 71045; 74177; 80048; 80053; 81001; 83690; 83735; 85025; 85610; 87086; 87088; 93005; 96361; 96374; 96375; 99285; J0696; J2405; J7030; Q9967

== ENCOUNTER 2024-04-09 17:14 | Emergency (ER) | payer OTHER ==
--- OUTSIDE RECORDS SUMMARY | 2024-04-09 17:19 | XMS REPORT | Continuity of Care Document ---
Author Name Unknown Address [address] [place] [address] [facility] Address [address] [place] [address] Care Team Providers Care Asset Protection Officer Name Role Phone Kervin Burns MD Primary Care Physician KERVIN BURNS Attending Clinician UnaShade Salinas RN Attending Clinician Unavailable Kervin Burns MD Attending Clinician + [phone] Ronak Smith Attending Clinician [phone] Bill Fairbanks MD Attending Clinician [phone] BILL FAIRBANKS Attending Clinician Unavailabl e BILL FAIRBANKS Attending Clinician Unavailabl e Doctor Unassigned, [place] Attending Clinician U Alexx Martinez MD Attending Clinician [phone] ALEXX GEE Attending Clinician Unavailable MATT CANALES Attending Clinician UnavailStella Feliz DO Attending Clinician [phone] Олег Raymond - Fer Attending Clinician Unavailable Emma Vallecillo MD Attending Clinician EMMA VALLECILLO Attending Clinician Lisa Brijesh Turner MD Attending Clinician [phone] BRIJESH TINEO Attending Clinician Unavailable Unknown, Attending Attending Clinician Unavailab chace Rm, Adc Surg Spec Procedure Attending Clinician Unavailable Payers Payer Name Policy Type Policy Number Effective Date Expirati on Date Source [employer] [place]MI[place] H[place] [id number] 2022 00:00:00 Problems Condition Name Condition Details Condition Category Status Onset Date Resolution Date Last Treatment Date Treating Clinician Comments Source Erectile dysfunctio n Erectile dysfunctio n Disease Active 01-10 00:00: 00 [facility] Essential hypertensi on Essential hypertensi on Disease Active 01-10 00:00: 00 [facility] Allergies, Adverse Reactions, Alerts Allergy Name Allergy Type Status Severity Reaction(s) Onset Date Inactive Date Treating Clinician Comments Source NO KNOWN ALLERGIE S Drug Class Active [facility] Social History Social Habit Start Date Stop Date Quantity Comments Source [facility] Alcohol intake 2024-01-29 00:00:00 2024-01-29 00:00:00 0 /d [facility] [place] Alcoholic beverage intake 2024-01-29 00:00:00 2024-01-29 00:00:00 0 /d [facility] [place] History of Social function 2023-09-05 00:00:00 2023-09-05 00:00:00 [facility] [place] Exposure to SARS-CoV-2 (event) 2023-02-18 00:00:00 2023-02-28 09:31:00 Not sure [facility] [place] Tobacco use and exposure 2016-01-11 00:00:00 2016-01-11 00:00:00 Smokeless tobacco non-user [facility] [place] Sex assigned at 1950 00:00:00 1950 00:00:00 [facility] [place] Smoking Status Start Date Stop Date Source Never smoked tobacco [facility] Medications Ordered Medication Name Filled Medication Name Start Date Stop Date Current Medication? Ordering Clinician Indication Dosage Frequency Signature (SIG) Comments Components Source valACYclovi r 500 mg tablet 03-24 00:00: 00 Yes [id number] 500mg Take 1 tablet by mouth in the morning. [facility] valACYclovi r 500 mg tablet 03-23 00:00: 00 Yes [id number] 500mg Take 1 tablet by mouth in the morning. [facility] hydroCHLORO thiazide 25 mg tablet 3-06 00:00: 00 Yes [id number] 25mg Take 1 tablet by mouth in the morning. [facility] lisinopriL 20 mg tablet -06 00:00: 00 Yes [id number] 20mg Take 1 tablet by mouth in the morning. [facility] triamcinolo ne acetonide (KENALOG) injection 40 mg 2022-10-16 20:30: 00 09-05 19:17 :00 No [id number] 40mg [facility] tadalafiL (CIALIS) 20 mg tablet 8-25 00:00: 00 Yes [id number] 20mg Take 1 tablet by mouth as needed for Erectile dysfunctio n (2 hrs prior to sexual activity, 2-3 times/ weeks). [facility] tadalafiL (CIALIS) 20 mg tablet - 00:00: 00 Yes [id number] 20mg Take 1 tablet by mouth as needed for Erectile dysfunctio n (2 hrs prior to sexual activity, 2-3 times/ weeks). [facility] tadalafiL (CIALIS) 20 mg tablet - 00:00: 00 04-29 00:00 :00 No [id number] 20mg Take 1 tablet by mouth as needed for Erectile dysfunctio n (2 hrs prior to sexual activity, 2-3 times/ weeks). [facility] valACYclovi r 500 mg tablet 02-28 00:00: 00 03-23 00:00 :00 No [id number] 500mg Take 1 tablet by mouth in the morning. [facility] sildenafiL (VIAGRA) 100 mg tablet 02-28 00:00: 00 04-10 00:00 :00 No [id number] 100mg Take 1 tablet by mouth as needed (take one hour prior to sexual activity daily as needed). [facility] triamcinolo ne acetonide (KENALOG) injection 40 mg -20 14:30: 00 02-07 13:33 :00 No [id number] 40mg [facility] valACYclovi r (VALTREX) 1 gram tablet 12-05 00:00: 00 12-13 05:59 :00 No [id number] 1g Take 1 tablet by mouth in the morning and 1 tablet in the evening. Do all this for 7 days. [facility] LISINOPRIL 20 mg tablet 11-21 00:00: 00 12-24 00:00 :00 No [id number] TAKE 1 TABLET BY MOUTH EVERY DAY [facility] valACYclovi r (VALTREX) 1 gram tablet 11-21 00:00: 00 12-05 00:00 :00 No [id number] 1g Take 1 tablet by mouth in the morning and 1 tablet at noon and 1 tablet in the evening. [facility] valACYclovi r (VALTREX) 1 gram tablet 11-09 00:00: 00 11-17 05:59 :00 No [id number] 1g Take 1 tablet by mouth in the morning and 1 tablet at noon and 1 tablet in the evening. Do all this for 7 days. [facility] ketoconazol e 2 % cream 11-07 00:00: 00 Yes [id number] Apply to area(s) daily. [facility] LISINOPRIL 20 mg tablet - 00:00: 00 11-21 00:00 :00 No [id number] TAKE 1 TABLET BY MOUTH EVERY DAY [facility] triamcinolo ne acetonide (KENALOG) injection 40 mg 2021-10 15:30: 00 08-16 14:22 :00 No [id number] 40mg [facility] ketorolac (TORADOL) injection 30 mg 2021-10 0-15 16:15: 00 08-04 15:19 :00 No [id number] 30mg [facility] diclofenac 75 mg EC tablet 2021-10 00:00: 00 01-28 00:00 :00 No 75mg Take 1 tablet by mouth in the morning and 1 tablet in the evening. Take with meals. [facility] tadalafiL (CIALIS) 20 mg tablet 9- 00:00: 00 02-28 00:00 :00 No [id number] 20mg Take 1 tablet by mouth as needed for Erectile dysfunctio n (2-3 times/week , 2 hrs prior to sexual activity). [facility] ibuprofen 600 mg tablet - 00:00: 00 Yes 600mg Take 1 tablet by mouth every 8 (eight) hours as needed. [facility] tadalafiL (CIALIS) 20 mg tablet 06-11 00:00: 00 07-12 00:00 :00 No [id number] 20mg Take 1 tablet by mouth as needed for Erectile dysfunctio n (2-3 times/week , 2 hrs prior to sexual experience ). [facility] HYDROCHLORO THIAZIDE 25 mg tablet - 00:00: 00 12-24 00:00 :00 No [id number] TAKE 1 TABLET BY MOUTH EVERY DAY [facility] mupirocin 2 % ointment 624 00:00: 00 Yes [id number] Apply to area(s) 3 (three) times daily. [facility] LISINOPRIL 20 mg tablet 4-05 00:00: 00 10-29 00:00 :00 No [id number] TAKE 1 TABLET BY MOUTH EVERY DAY [facility] DICLOFENAC 75 mg EC tablet 04 00:00: 00 08-04 00:00 :00 No [id number] TAKE 1 TABLET BY MOUTH TWICE A DAY WITH MEALS [facility] aspirin 81 mg EC tablet 05-22 10:26: 27 Yes 81mg Take 81 mg by mouth daily. [facility] Immunizations Ordered Immunization Name Filled Immunization Name Date Status Comments Source Pneumococcal 20 Conjugate, PCV20 (Prevnar 20) 2023-03-04 00:00:00 Completed [facility] [place] Zoster Vaccine Recombinant 2023-03-04 00:00:00 Completed [facility] [place] Pneumococcal 20 Conjugate, PCV20 (Prevnar 20) 2023-03-04 00:00:00 Completed [facility] [place] Zoster Vaccine Recombinant 2023-03-04 00:00:00 Completed [facility] [place] Pneumococcal 20 Conjugate, PCV20 (Prevnar 20) 2023-03-04 00:00:00 Completed [facility] [place] Zoster Vaccine Recombinant 2023-03-04 00:00:00 Completed [facility] [place] Pneumococcal 20 Conjugate, PCV20 (Prevnar 20) 2023-03-04 00:00:00 Completed [facility] [place] Zoster Vaccine Recombinant 2023-03-04 00:00:00 Completed [facility] [place] Pneumococcal 20 Conjugate, PCV20 (Prevnar 20) 2023-03-04 00:00:00 Completed [facility] [place] Zoster Vaccine Recombinant 2023-03-04 00:00:00 Completed [facility] [place] Pneumococcal 20 Conjugate, PCV20 (Prevnar 20) Unknown Completed [facility] [place] Zoster Vaccine Recombinant Unknown Completed [facility] [place] Pneumococcal 20 Conjugate, PCV20 (Prevnar 20) Unknown Completed [facility] [place] Zoster Vaccine Recombinant Unknown Completed [facility] [place] Pneumococcal 20 Conjugate, PCV20 (Prevnar 20) Unknown Completed [facility] [place] Zoster Vaccine Recombinant Unknown Completed [facility] [place] Pneumococcal 20 Conjugate, PCV20 (Prevnar 20) Unknown Completed [facility] [place] Zoster Vaccine Recombinant Unknown Completed [facility] [place] Pneumococcal 20 Conjugate, PCV20 (Prevnar 20) Unknown Completed [facility] [place] Zoster Vaccine Recombinant Unknown Completed [facility] [place] Pneumococcal 20 Conjugate, PCV20 (Prevnar 20) Unknown Completed [facility] [place] Zoster Vaccine Recombinant Unknown Completed [facility] [place] Pneumococcal 20 Conjugate, PCV20 (Prevnar 20) Unknown Completed [facility] [place] Zoster Vaccine Recombinant Unknown Completed [facility] [place] Pneumococcal 20 Conjugate, PCV20 (Prevnar 20) Unknown Completed [facility] [place] Zoster Vaccine Recombinant Unknown Completed [facility] [place] Pneumococcal 20 Conjugate, PCV20 (Prevnar 20) Unknown Completed [facility] [place] Zoster Vaccine Recombinant Unknown Completed [facility] [place] Pneumococcal 20 Conjugate, PCV20 (Prevnar 20) Unknown Completed [facility] [place] Zoster Vaccine Recombinant Unknown Completed [facility] [place] Pneumococcal 20 Conjugate, PCV20 (Prevnar 20) Unknown Completed [facility] [place] Zoster Vaccine Recombinant Unknown Completed [facility] [place] Vital Signs Vital Name Observation Time Observation Value Comments S crow Systolic blood pressure 2024-01-29 19:09:00 132 mm[Hg] [facility] Diastolic blood pressure 2024-01-29 19:09:00 80 mm[Hg] [facility] Heart rate 2024-01-29 19:04:00 89 /min Unive [facility] Body weight 2024-01-29 19:04:00 81.647 kg [facility] BMI 2024-01-29 19:04:00 29.05 kg/m2 Univ [facility] [place] Systolic blood pressure 2023-12-25 20:52:00 194 mm[Hg] [facility] Diastolic blood pressure 2023-12-25 20:52:00 100 mm[Hg] [facility] Heart rate 2023-12-25 20:47:00 83 /min Unive [facility] Body weight 2023-12-25 20:47:00 81.194 kg [facility] BMI 2023-12-25 20:47:00 28.89 kg/m2 [facility] [place] Body weight 2023-09-05 19:14:00 76.204 kg [facility] BMI 2023-09-05 19:14:00 27.12 kg/m2 [facility] [place] Systolic blood pressure 2023-04-10 19:16:00 163 mm[Hg] [facility] Diastolic blood pressure 2023-04-10 19:16:00 81 mm[Hg] [facility] Heart rate 2023-04-10 19:16:00 80 /min Unive [facility] Body temperature 2023-04-10 19:16:00 37.11 Brandi [facility] [place] Body height 2023-04-10 19:16:00 167.6 cm [facility] Body weight 2023-04-10 19:16:00 76.476 kg [facility] BMI 2023-04-10 19:16:00 27.21 kg/m2 [facility] Oxygen saturation in Arterial blood by Pulse oximetry 2023-04-10 19:16:00 94 /min [facility] Systolic blood pressure 2023-02-28 14:52:00 163 mm[Hg] [facility] Diastolic blood pressure 2023-02-28 14:52:00 82 mm[Hg] [facility] Heart rate 2023-02-28 14:51:00 73 /min Unive [facility] Body temperature 2023-02-28 14:51:00 37.17 Brandi [facility] [place] Body weight 2023-02-28 14:51:00 75.751 kg [facility] [place] BMI 2023-02-28 14:51:00 26.95 kg/m2 [facility] [place] Systolic blood pressure 2023-02-07 13:16:00 158 mm[Hg] [facility] Diastolic blood pressure 2023-02-07 13:16:00 76 mm[Hg] [facility] Heart rate 2023-02-07 13:16:00 63 /[facility] 2023-02-07 13:16:00 167.6 cm [facility] [place] Body weight 2023-02-07 13:16:00 74.753 kg [facility] [place] BMI 2023-02-07 13:16:00 26.60 kg/m2 [facility] [place] Systolic blood pressure 2023-01-09 15:06:00 138 mm[Hg] [facility] Diastolic blood pressure 2023-01-09 15:06:00 78 mm[Hg] [facility] Heart rate 2023-01-09 15:05:00 66 /min Unive [facility] Body height 2023-01-09 15:05:00 167.6 [facility] 2023-01-09 15:05:00 74.39 kg [facility] [place] BMI 2023-01-09 15:05:00 26.47 kg/m2 [facility] [place] Oxygen saturation in Arterial blood by Pulse oximetry 2023-01-09 15:05:00 96 /min [facility] Systolic blood pressure 2022-12-05 17:03:00 144 mm[Hg] [facility] Diastolic blood pressure 2022-12-05 17:03:00 76 mm[Hg] [facility] Heart rate 2022-12-05 17:02:00 70 /min Unive [facility] Body temperature 2022-12-05 17:02:00 36.83 Brandi [facility] [place] Body height 2022-12-05 17:02:00 167.6 cm [facility] Body weight 2022-12-05 17:02:00 74.844 kg [facility] [place] BMI 2022-12-05 17:02:00 26.63 kg/m2 [facility] Oxygen saturation in Arterial blood by Pulse oximetry 2022-12-05 17:02:00 96 /min [facility] Systolic blood pressure 2022-11-07 19:32:00 133 mm[Hg] [facility] Diastolic blood pressure 2022-11-07 19:32:00 69 mm[Hg] [facility] Heart rate 2022-11-07 19:31:00 91 /min Unive [facility] Body temperature 2022-11-07 19:31:00 37.06 Brandi [facility] [place] Body height 2022-11-07 19:31:00 157.5 cm [facility] Body weight 2022-11-07 19:31:00 73.483 kg [facility] BMI 2022-11-07 19:31:00 29.63 kg/m2 [facility] [place] Oxygen saturation in Arterial blood by Pulse oximetry 2022-11-07 19:31:00 98 /min [facility] Systolic blood pressure 2022-08-16 14:20:00 161 mm[Hg] [facility] Diastolic blood pressure 2022-08-16 14:20:00 89 mm[Hg] [facility] Heart rate 2022-08-16 14:20:00 62 /min Unive [facility] Oxygen saturation in Arterial blood by Pulse oximetry 2022-08-16 14:20:00 97 /min [facility] Body weight 2022-08-16 14:08:00 74.027 kg [facility] [place] BMI 2022-08-16 14:08:00 26.34 kg/m2 [facility] [place] Systolic blood pressure 2022-08-04 15:01:00 211 mm[Hg] [facility] Diastolic blood pressure 2022-08-04 15:01:00 95 mm[Hg] [facility] Heart rate 2022-08-04 15:00:00 74 /min Unive [facility] Body temperature 2022-08-04 15:00:00 36.78 Brandi [facility] [place] Respiratory rate 2022-08-04 15:00:00 16 /min [facility] [place] Body height 2022-08-04 15:00:00 167.6 cm [facility] [place] Body weight 2022-08-04 15:00:00 74.798 kg [facility] BMI 2022-08-04 15:00:00 26.62 kg/m2 [facility] Oxygen saturation in Arterial blood by Pulse oximetry 2022-08-04 15:00:00 98 /min [facility] Systolic blood pressure 2022-07-12 18:28:00 138 mm[Hg] [facility] Diastolic blood pressure 2022-07-12 18:28:00 90 mm[Hg] [facility] Heart rate 2022-07-12 18:28:00 84 /min [facility] Body temperature 2022-07-12 18:28:00 36.56 Brandi [facility] [place] Respiratory rate 2022-07-12 18:28:00 18 /min [facility] [place] Body height 2022-07-12 18:28:00 167.6 cm [facility] [place] Body weight 2022-07-12 18:28:00 71.668 kg [facility] BMI 2022-07-12 18:28:00 25.50 kg/m2 [facility] [place] Systolic blood pressure 2022-06-28 15:53:00 138 mm[Hg] [facility] Diastolic blood pressure 2022-06-28 15:53:00 81 mm[Hg] [facility] Body temperature 2022-06-28 15:53:00 37.28 Brandi [facility] [place] Body height 2022-06-28 15:53:00 167.6 cm [facility] Body weight 2022-06-28 15:53:00 72.122 kg [facility] BMI 2022-06-28 15:53:00 25.66 kg/m2 [facility] Procedures Procedure Date / Time Performed Performing Clinician Source MEDICATION CORRESPONDENCE 2023-07-29 05:01:00 Do ctor Unassigned, [place] [facility] [place] PATIENT QUESTIONNAIRE 2023-04-10 05:01:00 Doctor Unassigned, [place] [facility] PATIENT FINANCIAL POLICY 2023-01-09 14:46:46 Doctor Unassigned, [place] [facility] [place] XR KNEE 3 VW LEFT 2022-08-04 15:36:00 Brijesh Tineo [facility] PATIENT QUESTIONNAIRE 2022-06-11 05:01:00 Doctor Unassigned, [place] [facility] [place] Encounters Start Date/Time End Date/Time Encounter Type Admission Type Attending Clinicians Care Facility Care Department Encounter ID Source 2024-07-30 10:00:00 2024-07-30 10:00:00 Outpatient KERVIN EAGLE [facility] [id number] [facility] 2024-04-09 00:00:00 2024-04-09 16:23:38 Nurse [facility] 1..840.114 350.1.13.10 4.2.7.2.686 [id number] [facility] 2024-04-09 00:00:00 2024-04-09 10:08:01 Telephone Kervin Burns [facility] 1..840.114 350.1.13.10 4.2.7.2.686 [id number] [facility] 2024-03-23 00:00:00 2024-03-23 16:18:22 Refill Kervin Burns [facility] 1.840.114 350.1.13.10 4.2.7.2.686 [id number] [facility] 2024-01-29 14:15:00 2024-01-29 14:30:00 Office Visit Kervin Burns [facility] 1.840.114 350.1.13.10 4.2.7.2.686 [id number] [facility] 2024-01-29 14:15:00 2024-01-29 14:15:00 Outpatient KERVIN EAGLE [facility] [id number] [facility] 2023-12-25 15:00:00 2023-12-25 15:03:20 Outpatient KERVIN EAGLE [facility] [id number] [facility] 2023-12-25 15:00:00 2023-12-25 15:03:20 Office Visit Kerv[facility] 1.840.114 350.1.13.10 4.2.7.2.686 [id number] [facility] 2023-09-05 13:00:00 2023-09-05 13:15:00 Office Visit Ronak Miller Craig L COUNTS INCLUDE 234 BEDS AT THE [facility] 1..840.114 350.1.13.10 4.2.7.2.686 [id number] [facility] 2023-09-05 13:00:00 2023-09-05 13:00:00 Outpatient BILL DUPREE CRAIG [facility] [id number] [facility] 2023-07-29 00:00:00 2023-07-29 00:00:00 Orders Only Doctor Unassigned, [place] [facility] 1.840.114 350.1.13.10 4.2.7.2.686 [id number] [facility] 2023-06-14 00:00:00 2023-06-14 00:00:00 Telephone Marlen [facility] 1.2.840.114 350.1.13.10 4.2.7.2.686 [id number] [facility] 2023-04-29 00:00:00 2023-04-29 00:00:00 Telephone Marlen [facility] 1.2840.114 350.1.13.10 4.2.7.2.686 [id number] [facility] 2023-04-10 14:30:00 2023-04-10 15:34:13 Outpatient R MARLEN [facility] [id number] [facility] 2023-04-10 14:30:00 2023-04-10 14:45:00 Office Visit Marlen [facility] 1.2840.114 350.1.13.10 4.2.7.2.686 [id number] [facility] 2023-04-10 00:00:00 2023-04-10 00:00:00 Orders Only Doctor Unassigned, [place] [facility] 1.2840.114 350.1.13.10 4.2.7.2.686 [id number] [facility] 2023-03-08 00:00:00 2023-03-08 00:00:00 [facility] 1.2.840.114 350.1.13.10 4.2.7.2.686 [id number] [facility] 2023-02-28 10:00:00 2023-02-28 10:15:00 Office Visit Kervin Burns COUNTS INCLUDE 234 BEDS AT THE [facility] 1.840.114 350.1.13.10 4.2.7.2.686 [id number] [facility] 2023-02-28 10:00:00 2023-02-28 10:00:00 Outpatient R KERVIN BURNS [facility] [id number] [facility] 2023-02-20 13:00:00 2023-02-20 13:00:00 Outpatient R MARLEN [facility] [id number] [facility] 2023-02-07 08:45:00 2023-02-07 09:00:00 Office Visit KathyBill COUNTS INCLUDE 234 BEDS AT THE [facility] 1.840.114 350.1.13.10 4.2.7.2.686 [id number] [facility] 2023-02-07 08:45:00 2023-02-07 08:45:00 Outpatient R BILL FAIRBANKS [facility] [id number] [facility] 2023-01-09 10:00:00 2023-01-09 10:38:28 Outpatient R MARLEN [facility] [id number] [facility] 2023-01-09 10:00:00 2023-01-09 10:38:28 [facility] 1.840.114 350.1.13.10 4.2.7.2.686 [id number] [facility] 2023-01-09 00:00:00 2023-01-09 00:00:00 Orders Only Doctor Unassigned, [place] [facility] 1.840.114 350.1.13.10 4.2.7.2.686 [id number] [facility] 2023-01-09 00:00:00 2023-01-09 00:00:00 Telephone Kervin Burns [facility] 1.2.840.114 350.1.13.10 4.2.7.2.686 [id number] [facility] 2022-12-25 08:00:00 2022-12-25 08:00:00 Outpatient R MATT CANALES [facility] [id number] [facility] 2022-12-24 00:00:00 2022-12-24 00:00:00 Telephone Stella Urrutia [facility] 1.2.840.114 350.1.13.10 4.2.7.2.686 [id number] [facility] 2022-12-17 00:00:00 2022-12-17 00:00:00 Telephone Kervin Burns [facility] 1.2.840.114 350.1.13.10 4.2.7.2.686 [id number] [facility] 2022-12-11 13:15:00 2022-12-11 13:30:51 Outpatient R ALEXX GEE [facility] [id number] [facility] 2022-12-05 11:15:00 2022-12-05 11:30:00 Web Mer[employer] Visit Lab, Emma Knutson COUNTS INCLUDE 234 BEDS AT THE [facility] 1.2.840.114 350.1.13.10 4.2.7.2.686 [id number] [facility] 2022-12-05 11:00:00 2022-12-05 11:15:47 Outpatient R EMMA VALLECILLO [facility] [id number] [facility] 2022-12-05 11:00:00 2022-12-05 11:15:47 Office Visit Emma Vallecillo [facility] 1.2.840.114 350.1.13.10 4.2.7.2.686 [id number] 044 [id number] [facility] 2022-12-04 00:00:00 2022-12-04 00:00:00 Refill Kervin Burns [facility] NAL BUILDING 1.2.840.114 350.1.13.10 4.2.7.2.686 [id number] 044 [id number] [facility] 2022-11-21 00:00:00 2022-11-21 00:00:00 Refill Kervin Burns [facility] BUILDING 1.2840.114 350.1.13.10 4.2.7.2.686 [id number] 044 [id number] [facility] 2022-11-20 00:00:00 2022-11-20 00:00:00 Telephone Kervin Burns [facility]U?[facility] 1.2840.114 350.1.13.10 4.2.7.2.686 [id number] 044 [id number] [facility] 2022-11-09 00:00:00 2022-11-09 00:00:00 Case Management Ruth Ann Emma Alexandro [facility] OFFICE BUILDING 1.2840.114 350.1.13.10 4.2.7.2.686 [id number] 044 [id number] [facility] 2022-11-09 00:00:00 2022-11-09 00:00:00 Telephone [place] Emma [facility] 1.2.840.114 350.1.13.10 4.2.7.2.686 [id number] 044 [id number] [facility] 2022-11-07 13:45:00 2022-11-07 15:01:20 Outpatient R EMMA VALLECILLO [facility] [id number] [facility] 2022-11-07 13:45:00 2022-11-07 15:01:20 Office Visit Emma Vallecillo [facility]?YRNClarence [facility] BU[facility] 1.2.840.114 350.1.13.10 4.2.7.2.686 [id number] 044 [id number] [facility] 2022-10-27 00:00:00 2022-10-27 00:00:00 [facility] 1.2.840.114 350.1.13.10 4.2.7.2.686 [id number] 044 [id number] [facility] 2022-08-31 00:00:00 2022-08-31 00:00:00 Refill [facility] 1.2.840.114 350.1.13.10 4.2.7.2.686 [id number] [facility] 2022-08-16 09:30:00 2022-08-16 09:55:55 Outpatient R BILL FAIRBANKS [facility] [id number] [facility] 2022-08-16 09:30:00 2022-08-16 09:55:55 Office Visit Bill Fairbanks [facility] 1.2.840.114 350.1.13.10 4.2.7.2.686 [id number] [facility] 2022-08-04 10:13:52 2022-08-04 23:59:00 Outpatient R BRIJESH TINEO [facility] [id number] [facility] 2022-08-04 10:13:52 2022-08-04 23:59:00 [facility] 1.84114 350.1.13.10 4.2.7.2.686 [id number] [facility] 2022-08-04 10:20:00 2022-08-04 10:40:00 Urgent Care Brijesh Tineo Unknown, Attending COUNTS INCLUDE 234 BEDS AT THE [facility] 1.0.114 350.1.13.10 4.2.7.2.686 [id number] [facility] 2022-07-12 13:30:00 2022-07-12 14:32:23 Outpatient R ALEXX GEE [facility] [id number] [facility] 2022-07-12 13:30:00 2022-07-12 14:32:23 Office Visit Alexx Gee Rm, Adc Surg Spec [facility] 1.114 350.1.13.10 4.2.7.2.686 [id number] [facility] 2022-07-02 00:00:00 2022-07-02 00:00:00 Telephone Kervin Burns [facility] NAL BUILDING 1..114 350.1.13.10 4.2.7.2.686 [id number] 044 [id number] [facility] 2022-07-02 00:00:00 2022-07-02 00:00:00 Telephone Kervin Burns [facility] 1.84114 350.1.13.10 4.2.7.2.686 [id number] 044 [id number] [facility] 2022-06-28 11:00:00 2022-06-28 11:15:00 Office Visit Kervin Burns [facility] 1.284.114 350.1.13.10 4.2.7.2.686 [id number] 044 [id number] [facility] 2022-06-28 11:00:00 2022-06-28 11:00:00 Outpatient R KERVIN BURNS [facility] [id number] [facility] 2022-06-11 14:30:00 2022-06-11 15:43:00 Outpatient R MARLEN [facility] [id number] [facility] 2022-06-11 14:30:00 2022-06-11 15:43:00 [facility] 1.840.114 350.1.13.10 4.2.7.2.686 [id number] [facility] 2022-06-11 00:00:00 2022-06-11 00:00:00 Orders Only Doctor Unassigned, [place] [facility] 1.84.114 350.1.13.10 4.2.7.2.686 [id number] [facility] 2022-05-16 00:00:00 2022-05-16 00:00:00 Refill Turner [facility] MEDICAL OFFICE BUILDING 1.840.114 350.1.13.10 4.2.7.2.686 [id number] 044 [id number] [facility] 2022-04-16 00:00:00 2022-04-16 00:00:00 Telephone Turner [facility] MEDICAL OFFICE BUILDING 1.840.114 350.1.13.10 4.2.7.2.686 [id number] 044 [id number] [facility] 2022-04-13 09:30:00 2022-04-13 09:45:00 Web Merchant Visit Lab, Олег Burns [facility] MEDICAL OFFICE BUILDING 1.0.114 350.1.13.10 4.2.7.2.686 [id number] [facility] 2022-04-13 09:30:00 2022-04-13 09:30:00 Outpatient R KERVIN BURNS [facility] [id number] [facility] 2022-04-13 09:30:00 2022-04-13 09:30:00 Outpatient KERVIN EAGLE [facility] [id number] [facility] 2022-04-13 09:15:00 2022-04-13 09:15:00 Office Visit Kervin Burns [facility] OFF[facility] BUILDING 1.2.840.114 350.1.13.10 4.2.7.2.686 [id number] 044 [id number] [facility] 2022-04-13 00:00:00 2022-04-13 00:00:00 Letter (Out) Doctor Unassigned, [place] [facility] 1.2.840.114 350.1.13.10 4.2.7.2.686 [id number] 044 [id number] [facility] 2022-03-13 08:00:00 2022-03-13 08:00:00 Outpatient MATT SANTIAGO [facility] [id number] [facility] 2022-03-08 00:00:00 2022-03-08 00:00:00 Telephone Kervin Burns [facility] OFFICE BUILDING 1.2.840.114 350.1.13.10 4.2.7.2.686 [id number] 044 [id number] [facility] 2022-02-19 14:00:00 2022-02-19 15:13:04 Outpatient KERVIN EAGLE [facility] [id number] [facility] 2022-02-19 14:00:00 2022-02-19 14:15:00 Office Visit Kervin Burns [facility] 1.840.114 350.1.13.10 4.2.7.2.686 [id number] 044 [id number] [facility] 2022-02-19 14:00:00 2022-02-19 14:00:00 Outpatient KERVIN EAGLE [facility] [id number] [facility] 2022-01-23 00:00:00 2022-01-23 00:00:00 Refill Kervin Burns [facility] OFFICE BUILDING ONE 1.84.114 350.1.13.10 4.2.7.2.686 [id number] 044 [id number] [facility] 2022-01-16 14:00:00 2022-01-16 14:15:00 Office Visit Kervin Burns [facility] 1.84.114 350.1.13.10 4.2.7.2.686 [id number] 044 [id number] [facility] 2022-01-16 14:00:00 2022-01-16 14:00:00 Outpatient KERVIN EAGLE [facility] [id number] [facility] 2021-11-22 00:00:00 2021-11-22 00:00:00 Perry Burns [facility] OFFICE BUILDING ONE 1.84.114 350.1.13.10 4.2.7.2.686 [id number] 044 [id number] [facility] 2021-10-26 00:00:00 2021-10-26 00:00:00 Refill Kervin Burns [facility] OFFICE BUILDING ONE 1.84.114 350.1.13.10 4.2.7.2.686 [id number] 044 [id number] [facility] 2021-07-27 00:00:00 2021-07-27 00:00:00 Refill ShelliechristosKervin angulo [facility] Office Building One 1.2.840.114 350.1.13.10 4.2.7.2.686 [id number] 044 [id number] [facility] 2021-06-25 00:00:00 2021-06-25 00:00:00 Refill Shelliechristoskev Kervin [facility] Office Building One 1.2840.114 350.1.13.10 4.2.7.2.686 [id number] 044 [id number] [facility] 2021-05-26 00:00:00 2021-05-26 00:00:00 Refill Shelliechristoskev [facility] Office Building One 1.840.114 350.1.13.10 4.2.7.2.686 [id number] 044 [id number] [facility] 2021-04-04 15:08:56 2021-04-04 15:34:42 Office Visit Ronaldkev [facility] Office Building One 1.2840.114 350.1.13.10 4.2.7.2.686 [id number] 044 [id number] [facility] 2021-04-04 15:15:00 2021-04-04 15:15:00 Outpatient R KERVIN BURNS [facility] [id number] [facility] 2021-01-07 00:00:00 2021-01-07 00:00:00 Refsky Shelliesurendra [facility] Office Building One 1.2840.114 350.1.13.10 4.2.7.2.686 [id number] 044 [id number] [facility] 2020-12-07 00:00:00 2020-12-07 00:00:00 Refill Kervin Burns [facility] Office Building One 1.2.840.114 350.1.13.10 4.2.7.2.686 [id number] 044 [id number] [facility] 2020-12-05 00:00:00 2020-12-05 00:00:00 Refill Turner [facility] Office Building One 1.840.114 350.1.13.10 4.2.7.2.686 [id number] 044 [id number] [facility] 2020-11-06 00:00:00 2020-11-06 00:00:00 Refill Turner [facility] Office Building One 1..114 350.1.13.10 4.2.7.2.686 [id number] 044 [id number] [facility] 2020-08-29 15:50:30 2020-08-29 16:05:30 Office Visit Turner [facility] Office Building One 1..114 350.1.13.10 4.2.7.2.686 [id number] 044 [id number] [facility] 2020-08-29 15:45:00 2020-08-29 15:45:00 Outpatient R SHELLIESURENDRAKERVIN [facility] [id number] [facility] 2020-07-25 00:00:00 2020-07-25 00:00:00 Refsky Turner [facility] Office Building One 1..114 350.1.13.10 4.2.7.2.686 [id number] 044 [id number] [facility] 2020-07-12 00:00:00 2020-07-12 00:00:00 Refill Turner [facility] Office Building One 1.840.114 350.1.13.10 4.2.7.2.686 [id number] 044 [id number] [facility] 2020-06-05 00:00:00 2020-06-05 00:00:00 Kervin Maldonado [facility] Office Building One 1.2840.114 350.1.13.10 4.2.7.2.686 [id number] 044 [id number] [facility] 2020-05-24 00:00:00 2020-05-24 00:00:00 Refill Bill Fairbanks [facility] bebo Hettick 1.2840.114 350.1.13.10 4.2.7.2.686 [id number] [facility] 2020-03-16 00:00:00 2020-03-16 00:00:00 Refill Bill Fairbanks [facility] Surgical Specialti bebo [place]ettick 1.2840.114 350.1.13.10 4.2.7.2.686 [id number] 198 [id number] [facility] 2020-01-20 00:00:00 2020-01-20 00:00:00 Telephone Bill Fairbanks [facility] Surgical Specialti bebo Joyce 1.2840.114 350.1.13.10 4.2.7.2.686 [id number] 198 [id number] [facility] 2020-01-08 00:00:00 2020-01-08 00:00:00 Perry Burns [facility] Office Building One 1.284.114 350.1.13.10 4.2.7.2.686 [id number] 044 [id number] [facility] 2019-12-22 00:00:00 2019-12-22 00:00:00 Telephone Bill Fairbanks [facility] Surgical Specialti bebo Hettick 1.2840.114 350.1.13.10 4.2.7.2.686 [id number] [facility] 2019-12-18 00:00:2019-12-18 00:00:00 Telephone Bill Fairbanks [facility] 1.2840.114 350.1.13.10 4.2.7.2.686 [id number] 198 [id number] [facility] 2019-12-16 00:00:00 2019-12-16 00:00:[address] [facility] Building 1.0.114 350.1.13.10 4.2.7.2.686 [id number] 198 [id number] [facility] 2019-12-14 15:00:00 2019-12-14 15:00:00 Outpatient R BILL FAIRBANKS [facility] [id number] [facility] 2019-12-14 14:30:01 2019-12-14 14:47:21 Office Visit Bill Fairbanks [facility] Surgical [facility] 1.0.114 350.1.13.10 4.2.7.2.686 [id number] 198 [id number] [facility] 2019-12-14 00:00:00 2019-12-14 00:00:00 Orders Only Doctor Unassigned, [place] [facility] 1.2840.114 350.1.13.10 4.2.7.2.686 [id number] [facility] 2019-11-19 00:00:00 2019-11-19 00:00:00 Orders Only Doctor Unassigned, [place] [facility] 1.2840.114 350.1.13.10 4.2.7.2.686 [id number] 009 [id number] [facility] 2019-05-22 10:11:53 2019-05-22 10:26:53 Office Visit Kervin Burns [facility] Office Building One 1..114 350.1.13.10 4.2.7.2.686 [id number] 044 [id number] [facility] 2019-05-22 00:00:00 2019-05-22 00:00:00 Orders Only Doctor Unassigned, [place] [facility] 1.2.840.114 350.1.13.10 4.2.7.2.686 [id number] [id number] [facility] Notes Date/Time Note Provider Source 2024-04-09 15:47:00 8525-82-39W37:47:00F ormatting of this note might be different from the original.Regarding: Blood in pee x today----- Message from Bridget Tapia sent at 04/09/2024 3:46 PM CDT -----Sandi Bellamy is a 73 year old male or post op (no) -Number of weeks NA -Date of Surgery NA Language: Danish Specific Symptoms: Clear pee, but blood present Specific Duration: This afternoon. 87040-0Hwkzwtngl encounter RmtrOL9669-37-67A23:47:39Telephone encounter NoteTXT1.2.840.078555.1.13.104.2.7. 2.276985|[id number] for patient gmzp85657-3LctwJAMMVZXJIDBWemltdjgw C-CDA narrative [id number] [place] RNUT[address] EaysMyeyqualuVpukqgwkuQJOM438021211 5PSNKPMIILPTIMYUJLBZOKZ0768-47-19O5 5:47:391.2.840.108367.1.72.3.15|1.2 .840.826600.1.13.104.2.7.2.727879_2 [id number] Shade Arnett RN [facility] 2024-04-09 15:47:00 9068-07-33D76:47:00F ormatting of this note is different from the original.Adult Triage AssessmentLast Clinic Visit: 01/29/24, office visit- Essential HTNPrimary Symptom: blood in urineOnset / Duration: todayLocation / Description: , [facility] and after discharge with clear urine, his urine this evening was bright red without clots or pain.Pain / Severity: 0/10Associated Symptoms: denies all other symptoms reportedFever / Method: no feverHydration: 3 cups of coffee today, and last void was 45 minutes ago, with bright red blood in urine.Treatment so far: took 2 ibuprofen tablets before symptomsEffect on ADL's: able to perform daily activities without hindrencePre-existing condition / Immunocompromised:Past Medical History:Diagnosis DateHypertensionSandi Bellamy is a 73 year old maleCalling today regarding blood in urine after hospital visit, described as bright red blood without clots or pain. Disposition and care advice per urine-blood in- adult protocol, advised patient to be seen in [facility] ER for further evaluation of symptoms. Patient acknowledges, plans to return to OSH for follow up treatment and evaluation of symptoms, and has no further questions at this time. Advised per protocol recommendations, but stated it is his right to refuse disposition. Call back information provided.Shade Arnett MSN, RNRegistered [facility] for DispositionPassing pure blood or large blood clots (i.e., size > a dime) (Exception: sergio or small strands)Protocols used: Urine - Blood Tm-IFCCF-BLRpjuoabqsmgezk signed by Shade Arnett, RN at 04/09/2024 4:23 PM WQF47832-9Enwrrvczv encounter HvoeIZ1617-79-77G41:23:38Telephone encounter NoteTXT1.2.840.204974.1.13.104.2.7. 2.163845|[id number] for patient smrt39721-8YnviMMBAUKZGVDYMtjrulwoa C-CDA narrative text[address] RgksQckyjfnuvOxabjqfpbLOTR913854664 7DHQXDBOVIAWBJQJDVNXJVD4257-78-11T1 6:23:381.2.840.854296.1.72.3.15|1.2 .840.803385.1.13.104.2.7.2.727879_2 [id number] [facility] 2024-04-09 09:23:22 1926-35-07M07:23:22F ormatting of this note might be different from the original.[facility] and placed in provider's box. 15720-9Lmrwqkxkb encounter LnvzFZ6699-30-31K01:26:22Telephone encounter NoteTXT1.2.840.426683.1.13.104.2.7. 2.410563|[id number] for patient npaq50653-4OdbcBCDHZBMQTUDAdvtjixdk C-CDA narrative gtet873041175Xlwftg [address] AiidOsssmktezCufjrxdolRNYE304275850 1FDPISJGKPTSOVWURWZYYPA7008-66-38G7 9:26:221.2.840.120624.1.72.3.15|1.2 .840.578222.1.13.104.2.7.2.727879_2 [id number] Kellie Ashley [facility] 2024-03-23 13:44:57 4610-52-57T54:44:57F ormatting of this note is different from the original.No results found for: "HSVG1", "HSVG2"Notes: 02/28/23Last Refilled:[facility]/pharmacy #[id number] [place], [place] - [facility] [address] [facility] [address]Phone: Yjvqgi VisitsDate Type Provider Dept01/29/24 Office Visit Kervin Burns MD [facility]12/25/23 Office Visit Kervin Burns MD [facility]02/28/23 Office Visit Kervin Burns MD [facility]12/05/22 Office Visit Emma Vallecillo MD [facility]11/07/22 Office Visit Emma Vallecillo MD Ang-[facility] MedShowing recent visits within past 540 days with a meds authorizing provider and meeting all other requirementsFuture AppointmentsDate Type Provider Dept1 Appointment Kervin Burns MD Ang[facility] MedShowing future appointments within next 150 days with a meds authorizing provider and meeting all other requirements 30781-0Nsgbvfvsx encounter XwblRD9187-95-59L97:45:38Telephone encounter NoteTXT1.2.840.622196.1.13.104.2.7. 2.791990|[id number] for patient dpyh46115-4HzygQKLZRKINKSAImaqawtmv C-CDA narrative nbrq963990713Wtkkyp L Cantu [address] TpsfLmkkhqxlfZwgvnmistGHQH771184456 7RFGOPNQNYIBPFLGROWXQHZ6364-93-70X3 3:45:381.2.840.321750.1.72.3.15|1.2 .840.685214.1.13.104.2.7.2.727879_2 [id number] Merary Myrick [facility] 2024-03-23 11:41:59 5255-94-23V26:41:59F ormatting of this note might be different from the original.Sandi Bellamy is a 73 year old malePatient called stating he needs a refill of Valtrex. Please contact [phone] (home)[facility]/pharmacy #[id number] [place], [place] - [facility] [address] [facility] STREETPhone: ' [phone] encounter AtreLD7471-51-57N79:43:51Telephone encounter NoteTXT1.2.840.025892.1.13.104.2.7. 2.529828|[id number] for patient sdty84615-5HcinJQANAHUQPEFMxanzmzjp C-CDA narrative text[id number] 2QEJUURUNAUOJYGFKZZNAMT6876-68-54O9 1:43:511.2.840.955247.1.72.3.15|1.2 .840.119723.1.13.104.2.7.2.727879_2 [id number] [facility] 2023-06-14 09:40:17 0832-72-61U97:40:17F ormatting of this note might be different from the original.Patient notified medication has been sent. Instructed to follow up with pharmacy. Offered telephone number, however patient not able to write it down at this time. Patient will contact the clinic for number. ABEL GARNETT 51220-3Rdlgnyzzg encounter HemmOW0857-62-34J67:48:17Telephone encounter NoteTXT1.2.840.834142.1.13.104.2.7. 2.186585|[id number] for patient ewih06457-3WedwNV303857936Fsdvaw A Hall RN[address] [id number] 7KSGRLIQRPAIHMHQUHASJNQ0494-84-51N5 9:48:171.2.840.104391.1.72.3.15|1.2 .840.214833.1.13.104.2.7.2.727879_1 [id number] Yady Ortiz RN [facility] 2023-06-14 09:01:54 2677-22-67G82:01:54F ormatting of this note might be different from the original.Pt is running out of medication for ED issues and was told they would be mailed to his house. He still has not received anything and would like a call back regarding this.Please advise 11519-1Zruhjrljl encounter JfbfZH7792-67-53S38:04:41Telephone encounter NoteTXT1.2.840.827962.1.13.104.2.7. 2.046175|[id number] for patient qpnb89375-8VcafILGFGAJKXD[address]vdGalvestonGalvestonTXTX775557755 6EYSJFQNXUHPCNWFYKYFDIG8068-75-96W0 9:04:411.2.840.663704.1.72.3.15|1.2 .840.892788.1.13.104.2.7.2.727879_1 [id number] [facility]
[2024-04-09 18:39] LABS: Specific Gravity 1.008 (1.005-1.030); Sqamous Epithelial None Seen /HPF (None Seen); Urine Bilirubin NEGATIVE (Negative); Urine Blood 3+ (OVER) (Negative); Urine Clarity Extremely Turbid (Clear); Urine Color Red (Yellow); Urine Glucose NEGATIVE (Negative); Urine Ketones NEGATIVE (Negative); Urine Micro Reflex YN NO BILL MICROSCOPIC; Urine Nitrite NEGATIVE (Negative); Urine Protein 2+ (Negative); Urine Urobilinogen Normal (Normal)
--- NOTE | 2024-04-09 18:41 | EDPHYS ---
Physician Documentation [facility] Name: Lavell Bellamy Age: 73 yrs Sex: Male : 1950 Arrival Date: 04/09/2024 Time: 17:14 Bed 6 Private MD: ED Physician Joel Patel HPI: 04/09 18:10 This 73 yrs old Male presents to ER via Ambulatory with complaints of Urinary Problem. sp3 18:10 73-year-old male with history of hypertension and recent episodes of hematuria sp3 currently being worked up by Dr. Garcia and patient's PCP outpatient now presents with recurrent hematuria. Patient states over the last 2 days he has had multiple catheter placements and irrigation with subsequent clear urine and now he has recurrent C of blood-tinged urine. On his last visit he had the option to go home with a catheter versus not and he opted to not. He is returning here just out of concern whether he needs another catheter or not. He is able to urinate and has no blood clots. Patient has not yet had a cystoscopy which is scheduled for next month. He has no pain and has no other complaints. Review of systems otherwise negative. Patient is on no anticoagulants and was taking 81 mg of aspirin daily which she has stopped. No other bleeding at any other site.. Historical: - Allergies: 18:10 NKA; nj1 - PMHx: 18:10 Hypertensive disorder; nj1 - PSHx: 18:10 hernia repair; nj1 - Immunization history:: Client reports having NOT received the Covid vaccine. - Infectious Disease History:: Denies. - Social history:: Smoking status: Patient denies any tobacco usage or history of. ROS: 18:11 Constitutional: Negative for fever, chills, and weight loss, Eyes: Negative for injury, sp3 pain, redness, and discharge, Neck: Negative for injury, pain, and swelling, Cardiovascular: Negative for chest pain, palpitations, and edema, Respiratory: Negative for shortness of breath, cough, wheezing, and pleuritic chest pain, Abdomen/GI: Negative for abdominal pain, nausea, vomiting, diarrhea, and constipation, Back: Negative for injury and pain, MS/Extremity: Negative for injury and deformity, Skin: Negative for injury, rash, and discoloration, Neuro: Negative for headache, weakness, numbness, tingling, and seizure, Psych: Negative for depression, anxiety, suicide ideation, homicidal ideation, and hallucinations, Allergy/Immunology: Negative for hives, rash, and allergies, Endocrine: Negative for neck swelling, polydipsia, polyuria, polyphagia, and marked weight changes, Hematologic/Lymphatic: Negative for swollen nodes, abnormal bleeding, and unusual bruising, 18:11 All other systems are negative, Exam: 18:12 Constitutional: This is a well developed, well nourished patient who is awake, alert, sp3 and in no acute distress. Head/Face: Normocephalic, atraumatic. Neck: Trachea midline, no thyromegaly or masses palpated, and no cervical lymphadenopathy. Supple, full range of motion without nuchal rigidity, or vertebral point tenderness. No Meningismus. Chest/axilla: Normal chest wall appearance and motion. Nontender with no deformity. No lesions are appreciated. Cardiovascular: Regular rate and rhythm with a normal S1 and S2. No gallops, murmurs, or rubs. Normal PMI, no JVD. No pulse deficits. Respiratory: Lungs have equal breath sounds bilaterally, clear to auscultation and percussion. No rales, rhonchi or wheezes noted. No increased work of breathing, no retractions or nasal flaring. Abdomen/GI: Soft, non-tender, with normal bowel sounds. No distension or tympany. No guarding or rebound. No evidence of tenderness throughout. Back: No spinal tenderness. No costovertebral tenderness. Full range of motion. Male : Normal genitalia with no discharge or lesions. MS/ Extremity: Pulses equal, no cyanosis. Neurovascular intact. Full, normal range of motion. Neuro: Awake and alert, GCS 15, oriented to person, place, time, and situation. Cranial nerves II-XII grossly intact. Motor strength 5/5 in all extremities. Sensory grossly intact. Cerebellar exam normal. Normal gait. Psych: Awake, alert, with orientation to person, place and time. Behavior, mood, and affect are within normal limits. Vital Signs: 17:53 BP 146 / 100; Pulse 96; Resp 18; Temp 98.4(O); Pulse Ox 96% on R/A; Weight 72.57 kg nj1 (R); Height 5 ft. 6 in. (R); 18:57 BP 138 / 90; Pulse 92; Resp 16; Pulse Ox 99% ; ko1 17:53 Body Mass Index 25.82 (72.57 kg, 167.64 cm) nj1 MDM: 17:45 Patient medically screened. sp3 18:12 Data reviewed: vital signs, nurses notes, lab test result(s). ED course: Will obtain sp3 urine analysis however patient does not want a catheter unless absolutely necessary. At this point since he is able to void we will most likely let him go home as long as there is no infection in his urine. I advised him to contact Dr. Garcia office for [place] in the morning for further guidance in terms of catheter placement.. 18:40 ED course: No evidence of infection on urinalysis. We will safely discharge patient sp3 home at this time. He has been instructed if he is unable to urinate to return here for Ibarra catheter placement. Otherwise follow back up with Dr. Garcia tomorrow.. 04/09 17:44 Order name: UAM sp3 04/09 18:48 Order name: Urine Culture EDMS Administered Medications: No medications were administered Disposition Summary: 04/09/24 18:41 Discharge Ordered Notes: Location: Home sp3 Condition: Stable sp3 Diagnosis - Hematuria, unspecified sp3 Followup: sp3 - With: Private Physician - When: Upon discharge from the Emergency Department - Reason: Continuance of care Discharge Instructions: - Discharge Summary Sheet sp3 - Hematuria, Adult sp3 Forms: - Medication Reconciliation Form sp3 - Antibiotic Education sp3 - Prescription Opioid Use sp3 - Patient Portal Instructions sp3 - Leadership Thank You Letter sp3 Signatures: Dispatcher [employer] EDMS Joel Patel MD MD sp3 Aissatou Suarez, KATIE RN ko1 Key Holley, KATIE RN nj1 Corrections: (The following items were deleted from the chart) 18:12 18:10 73-year-old male with history of hypertension and recent episodes of hematuria sp3 currently being worked up by Dr. Garcia and patient's PCP outpatient now presents with recurrent hematuria. Patient states over the last 2 days he has had multiple catheter placements and irrigation with subsequent clear urine and now he has recurrent C of blood-tinged urine. On his last visit he had the option to go home with a catheter versus not and he opted to not. He is returning here just out of concern whether he needs another catheter or not. He is able to urinate and has no blood clots. Patient has not yet had a cystoscopy which is scheduled for next month. He has no pain and has no other complaints. Review of systems otherwise negative.. sp3 18:58 17:30 Infectious Disease History: Denies. ko1 ko1
--- NOTE | 2024-04-09 18:41 | ER ---
Nurse's Notes [facility] Name: Lavell Bellamy Age: 73 yrs Sex: Male : 1950 Arrival Date: 04/09/2024 Time: 17:14 Bed 6 Private MD: Diagnosis: Hematuria, unspecified Presentation: 04/09 17:53 Chief complaint: Patient states: Blood in urine. States he was discharged from this [facility] hospital yesterday, admitted for same complaint, was better but today he saw blood when he urinated again. 17:53 Coronavirus screen: Vaccine status: Patient reports being unvaccinated. Ebola Screen: [facility] Patient denies travel to an Ebola-affected area in the 21 days before illness onset. Initial Sepsis Screen: Does the patient meet any 2 criteria? HR > 90 bpm. No. Patient's initial sepsis screen is negative. Does the patient have a suspected source of infection? No. Patient's initial sepsis screen is negative. Risk Assessment: Do you want to hurt yourself or someone else? Patient reports no desire to harm self or others. Onset of symptoms was April 09, 2024. 17:53 Method Of Arrival: Ambulatory [facility] 17:53 Acuity: JOHANNY 3 [facility] Historical: - Allergies: 18:10 NKA; [facility] - PMHx: 18:10 Hypertensive disorder; [facility] - PSHx: 18:10 hernia repair; [facility] - Immunization history:: Client reports having NOT received the Covid vaccine. - Infectious Disease History:: Denies. - Social history:: Smoking status: Patient denies any tobacco usage or history of. Screenin:50 [facility] ED Fall Risk Assessment (Adult) History of falling in the last 3 months, ko1 including since admission No falls in past 3 months (0 pts) Confusion or Disorientation No (0 pts) Intoxicated or Sedated No (0 pts) Impaired Gait No (0 pts) Mobility Assist Device Used No (0 pt) Altered Elimination No (0 pt) Score/Fall Risk Level 0 - 2 = Low Risk Oriented to surroundings, Maintained a safe environment, Educated pt \T\ family on fall prevention, incl call for assistance when getting out of bed, Assessed \T\ reinforced patient's understanding of fall precautions, Provided non-skid footwear, Hourly rounding (assess needs \T\ fall precautionary measures) done. Abuse screen: Denies threats or abuse. Denies injuries from another. Nutritional screening: No deficits noted. Tuberculosis screening: No symptoms or risk factors identified. Assessment: 17:50 General: Appears in no apparent distress. Behavior is cooperative, appropriate for age. ko1 Pain: Denies pain. Neuro: No deficits noted. Cardiovascular: No deficits noted. Respiratory: No deficits noted. GI: No deficits noted. : Reports blood in urine. EENT: No deficits noted. Derm: No deficits noted. Musculoskeletal: No deficits noted. Vital Signs: 17:53 BP 146 / 100; Pulse 96; Resp 18; Temp 98.4(O); Pulse Ox 96% on R/A; Weight 72.57 kg nj1 (R); Height 5 ft. 6 in. (R); 18:57 BP 138 / 90; Pulse 92; Resp 16; Pulse Ox 99% ; ko1 17:53 Body Mass Index 25.82 (72.57 kg, 167.64 cm) nj1 ED Course: 17:16 Patient arrived in ED. mr 17:17 Joel Patel MD is Attending Physician. sp3 17:36 Patient's name was called from ER [employer] [facility] No response. nj1 17:40 Patient's name was called from ER [employer] [facility] No response. nj1 17:50 Patient has correct armband on for positive identification. Bed in low position. Call ko1 light in reach. Side rails up X 1. Provided Education on: labs. 17:50 Patient placed in an exam room, on a stretcher, on k 12 principal, on pulse oximetry, ko1 Patient notified of wait time. 18:10 Triage completed. nj1 18:11 Remington West, RN is Primary Nurse. rs5 18:58 No provider procedures requiring assistance completed. rs5 18:59 Patient did not have IV access during this emergency room visit. ko1 Administered Medications: No medications were administered Medication: 17:50 VIS not applicable for this client. ko1 Outcome: 18:41 Discharge ordered by . sp3 18:59 Discharged to home ambulatory, ko1 18:59 Condition: stable 18:59 Discharge instructions given to patient, Instructed on discharge instructions, follow up and referral plans. Demonstrated understanding of instructions, follow-up care, 19:00 Patient left the ED. ko1 Signatures: Therese Arnold Reg Reg mr JorgeJoel MD MD sp3 Aissatou Suarez, RN RN ko1 Remington West, RN RN rs5 Key Holley, RN RN nj1 Corrections: (The following items were deleted from the chart) 18: 17:30 BP 138 / 90; Pulse 92bpm; Resp 16bpm; Pulse Ox 99%; ko1 ko 18:57 17:30 VIS not applicable for this client. ko1 ko 18: 17:30 [facility] ED Fall Risk Assessment (Adult) History of falling in the last 3 months, ko1 including since admission No falls in past 3 months (0 pts) Confusion or Disorientation No (0 pts) Intoxicated or Sedated No (0 pts) Impaired Gait No (0 pts) Mobility Assist Device Used No (0 pt) Altered Elimination No (0 pt) Score/Fall Risk Level 0 - 2 = Low Risk Oriented to surroundings, Maintained a safe environment, Educated pt \T\ family on fall prevention, incl call for assistance when getting out of bed, Assessed \T\ reinforced patient's understanding of fall precautions, Provided non-skid footwear, Hourly rounding (assess needs \T\ fall precautionary measures) done, ko1 18: 17:30 Abuse screen: Denies threats or abuse. Denies injuries from another. ko1 ko 18: 17:30 Nutritional screening: No deficits noted. ko1 ko 18: 17:30 Tuberculosis screening: No symptoms or risk factors identified. ko1 ko 18:58 17:30 [facility]ious Disease [facility]: [facility] General: Appears in no apparent distress. Behavior is cooperative, appropriate ko1 for age, ko : 17:30 Pain: Denies pain. ko1 ko : 17:30 Neuro: No deficits noted. ko1 ko 18: 17:30 Cardiovascular: No deficits noted. ko1 ko : 17:30 Respiratory: No deficits noted. ko1 ko : 17:30 GI: No deficits noted. ko1 ko : 17:30 : Reports blood in urine ko1 ko 17:30 EENT: No deficits noted. ko1 ko : 17:30 Derm: No deficits noted. ko1 ko1 18:59 17:30 Musculoskeletal: No deficits noted. ko1 ko1
[2024-04-09 18:43] LABS: Urine Culture Reflex Order REFLEXED; Urine RBC >50 /HPF (None Seen)
[2024-04-09 18:44] LABS: Urine Bacteria <20 /HPF (<20)
[2024-04-09 18:45] LABS: Urine Mucus 2+ /HPF (None Seen)
[2024-04-09 19:08] VITALS: TEMP 98.4
[2024-04-09 19:23] VITALS: BP 138/90; O2SAT 99
== END 2024-04-09 19:00 | disposition home or self-care (01) ==
LOC: ER 17:14
DX: R31.9 Hematuria, unspecified (principal)
CPT/HCPCS: 81001; 87086; 87088; 99283

== ENCOUNTER 2024-06-25 01:48 | Emergency (ER) | payer OTHER ==
--- OUTSIDE RECORDS SUMMARY | 2024-06-25 01:52 | XMS REPORT | Continuity of Care Document ---
Author Name Unknown Address [address] [facility] [address] [place] [address] [facility] Address [address] [facility] [address] [place] [address] Care Team Providers Care Compressed Yeast Supervisor Name Role Phone Kervin Burns MD Primary Care Physician KERVIN BURNS Attending Clinician UnaKervin Mcintyre MD Attending Clinician + [phone] Kervin Burns MD Attending Clinician + [phone] Shade Arnett RN Attending Clinician Unavailable Ronak Smith Attending Clinician [phone] Bill Fairbanks MD Attending Clinician [phone] BILL FAIRBANKS Attending Clinician UnavailBILL Mari Attending Clinician Unavailabl e Doctor Unassigned, [place] Attending Clinician U Alexx Martinez MD Attending Clinician [phone] ALEXX GEE Attending Clinician Unavailable MATT CANALES Attending Clinician UnavailStella Feliz DO Attending Clinician [phone] Олег Raymond - Fer Attending Clinician Unavailable Emma Vallecillo MD Attending Clinician EMMA VALLECILLO Attending Clinician Lisa Brijesh Turner MD Attending Clinician [phone] BRIJESH TINEO Attending Clinician Unavailable Unknown, Attending Attending Clinician Unavailab chace Abdi, Zhen Surg Spec Procedure Attending Clinician Unavailable Payers Payer Name Policy Type Policy Number Effective Date Expirati on Date Source [employer] [place]MI[place] [id number] 2022 00:00:00 Problems Condition Name Condition Details Condition Category Status Onset Date Resolution Date Last Treatment Date Treating Clinician Comments Source Erectile dysfunctio n Erectile dysfunctio n Disease Active 01-10 00:00: 00 [facility] Essential hypertensi on Essential hypertensi on Disease Active 01-10 00:00: 00 [facility] Allergies, Adverse Reactions, Alerts Allergy Name Allergy Type Status Severity Reaction(s) Onset Date Inactive Date Treating Clinician Comments Source NO KNOWN ALLERGIE S Drug Class Active [facility] Social History Social Habit Start Date Stop Date Quantity Comments Source Gender identity [facility] Sexual [facility] Alcohol intake 2024-01-29 00:00:00 2024-01-29 00:00:00 0 /d [facility] Alcoholic beverage intake 2024-01-29 00:00:00 2024-01-29 00:00:00 0 /d [facility] History of Social function 2023-09-05 00:00:00 2023-09-05 00:00:00 [facility] Exposure to SARS-CoV-2 (event) 2023-02-18 00:00:00 2023-02-28 09:31:[address] [facility] Tobacco use and exposure 2016-01-11 00:00:00 2016-01-11 00:00:00 Smokeless tobacco non-user [facility] Sex assigned at 1950 00:00:00 1950 00:00:00 [facility] Smoking Status Start Date Stop Date Source Never smoked tobacco [facility] Medications Ordered Medication Name Filled Medication Name Start Date Stop Date Current Medication? Ordering Clinician Indication Dosage Frequency Signature (SIG) Comments Components Source valACYclovi r 500 mg tablet 03-24 00:00: 00 Yes [id number] 500mg Take 1 tablet by mouth in the morning. [facility] valACYclovi r 500 mg tablet 03-23 00:00: 00 Yes [id number] 500mg Take 1 tablet by mouth in the morning. [facility] hydroCHLORO thiazide 25 mg tablet -06 00:00: 00 Yes [id number] 25mg Take 1 tablet by mouth in the morning. [facility] lisinopriL 20 mg tablet -06 00:00: 00 Yes [id number] 20mg Take 1 tablet by mouth in the morning. [facility] triamcinolo ne acetonide (KENALOG) injection 40 mg 2022-10-16 20:30: 00 09-05 19:17 :00 No [id number] 40mg [facility] tadalafiL (CIALIS) 20 mg tablet 8-25 00:00: 00 Yes [id number] 20mg Take 1 tablet by mouth as needed for Erectile dysfunctio n (2 hrs prior to sexual activity, 2-3 times/ weeks). [facility] tadalafiL (CIALIS) 20 mg tablet - 00:00: 00 Yes [id number] 20mg Take 1 tablet by mouth as needed for Erectile dysfunctio n (2 hrs prior to sexual activity, 2-3 times/ weeks). [facility] tadalafiL (CIALIS) 20 mg tablet - 00:00: 00 04-29 00:00 :00 No [id number] 20mg Take 1 tablet by mouth as needed for Erectile dysfunctio n (2 hrs prior to sexual activity, 2-3 times/ weeks). [facility] valACYclovi r 500 mg tablet 02-28 00:00: 00 03-23 00:00 :00 No [id number] 500mg Take 1 tablet by mouth in the morning. [facility] sildenafiL (VIAGRA) 100 mg tablet -11 00:00: 00 04-10 00:00 :00 No [id number] 100mg Take 1 tablet by mouth as needed (take one hour prior to sexual activity daily as needed). [facility] triamcinolo ne acetonide (KENALOG) injection 40 mg -20 14:30: 00 02-07 13:33 :00 No [id number] 9109 40mg [facility] valACYclovi r (VALTREX) 1 gram tablet 12-05 00:00: 00 12-13 05:59 :00 No [id number] 1g Take 1 tablet by mouth in the morning and 1 tablet in the evening. Do all this for 7 days. [facility] LISINOPRIL 20 mg tablet 11-21 00:00: 00 12-24 00:00 :00 No [id number] TAKE 1 TABLET BY MOUTH EVERY DAY [facility] valACYclovi r (VALTREX) 1 gram tablet 11-21 00:00: 00 12-05 00:00 :00 No [id number] 1g Take 1 tablet by mouth in the morning and 1 tablet at noon and 1 tablet in the evening. [facility] valACYclovi r (VALTREX) 1 gram tablet 11-09 00:00: 00 11-17 05:59 :00 No [id number] 1g Take 1 tablet by mouth in the morning and 1 tablet at noon and 1 tablet in the evening. Do all this for 7 days. [facility] ketoconazol e 2 % cream 11-07 00:00: 00 Yes [id number] Apply to area(s) daily. [facility] LISINOPRIL 20 mg tablet 10-29 00:00: 00 11-21 00:00 :00 No [id number] TAKE 1 TABLET BY MOUTH EVERY DAY [facility] triamcinolo ne acetonide (KENALOG) injection 40 mg 2021-10 15:30: 00 08-16 14:22 :00 No [id number] 9109 40mg [facility] ketorolac (TORADOL) injection 30 mg 2021-10 16:15: 00 08-04 15:19 :00 No [id number] 30mg [facility] diclofenac 75 mg EC tablet 2021-10 00:00: 00 01-28 00:00 :00 No 75mg Take 1 tablet by mouth in the morning and 1 tablet in the evening. Take with meals. [facility] tadalafiL (CIALIS) 20 mg tablet 07-12 00:00: 00 02-28 00:00 :00 No [id number] 20mg Take 1 tablet by mouth as needed for Erectile dysfunctio n (2-3 times/week , 2 hrs prior to sexual activity). [facility] ibuprofen 600 mg tablet 06-15 00:00: 00 Yes 600mg Take 1 tablet by mouth every 8 (eight) hours as needed. [facility] tadalafiL (CIALIS) 20 mg tablet 06-11 00:00: 00 07-12 00:00 :00 No [id number] 20mg Take 1 tablet by mouth as needed for Erectile dysfunctio n (2-3 times/week , 2 hrs prior to sexual experience ). [facility] HYDROCHLORO THIAZIDE 25 mg tablet 05-16 00:00: 00 12-24 00:00 :00 No [id number] TAKE 1 TABLET BY MOUTH EVERY DAY [facility] mupirocin 2 % ointment 624 00:00: 00 Yes [id number] Apply to area(s) 3 (three) times daily. [facility] LISINOPRIL 20 mg tablet 405 00:00: 00 10-29 00:00 :00 No [id number] TAKE 1 TABLET BY MOUTH EVERY DAY [facility] DICLOFENAC 75 mg EC tablet 05-24 00:00: 00 08-04 00:00 :00 No [id number] TAKE 1 TABLET BY MOUTH TWICE A DAY WITH MEALS [facility] aspirin 81 mg EC tablet 05-22 10:26: 27 Yes 81mg Take 81 mg by mouth daily. [facility] Immunizations Ordered Immunization Name Filled Immunization Name Date Status Comments Source Pneumococcal 20 Conjugate, PCV20 (Prevnar 20) 2023-03-04 00:00:[address] [facility] Zoster Vaccine Recombinant 2023-03-04 00:00:[address] [facility] Pneumococcal 20 Conjugate, PCV20 (Prevnar 20) 2023-03-04 00:00:[address] [facility] Zoster Vaccine Recombinant 2023-03-04 00:00:[address] [facility] Pneumococcal 20 Conjugate, PCV20 (Prevnar 20) 2023-03-04 00:00:[address] [facility] Zoster Vaccine Recombinant 2023-03-04 00:00:[address] [facility] Pneumococcal 20 Conjugate, PCV20 (Prevnar 20) 2023-03-04 00:00:[address] [facility] Zoster Vaccine Recombinant 2023-03-04 00:00:[address] [facility] Pneumococcal 20 Conjugate, PCV20 (Prevnar 20) 2023-03-04 00:00:[address] [facility] Zoster Vaccine Recombinant 2023-03-04 00:00:[address] [facility] Pneumococcal 20 Conjugate, PCV20 (Prevnar 20) Unknown Completed [facility] Zoster Vaccine Recombinant Unknown Completed [facility] Pneumococcal 20 Conjugate, PCV20 (Prevnar 20) Unknown Completed [facility] Zoster Vaccine Recombinant Unknown Completed [facility] Pneumococcal 20 Conjugate, PCV20 (Prevnar 20) Unknown Completed [facility] Zoster Vaccine Recombinant Unknown Completed [facility] Pneumococcal 20 Conjugate, PCV20 (Prevnar 20) Unknown Completed [facility] Zoster Vaccine Recombinant Unknown Completed [facility] Pneumococcal 20 Conjugate, PCV20 (Prevnar 20) Unknown Completed [facility] Zoster Vaccine Recombinant Unknown Completed [facility] Pneumococcal 20 Conjugate, PCV20 (Prevnar 20) Unknown Completed [facility] Zoster Vaccine Recombinant Unknown Completed [facility] Pneumococcal 20 Conjugate, PCV20 (Prevnar 20) Unknown Completed [facility] Zoster Vaccine Recombinant Unknown Completed [facility] Pneumococcal 20 Conjugate, PCV20 (Prevnar 20) Unknown Completed [facility] Zoster Vaccine Recombinant Unknown Completed [facility] Pneumococcal 20 Conjugate, PCV20 (Prevnar 20) Unknown Completed [facility] Zoster Vaccine Recombinant Unknown Completed [facility] Pneumococcal 20 Conjugate, PCV20 (Prevnar 20) Unknown Completed [facility] Zoster Vaccine Recombinant Unknown Completed [facility] Pneumococcal 20 Conjugate, PCV20 (Prevnar 20) Unknown Completed [facility] Zoster Vaccine Recombinant Unknown Completed [facility] Pneumococcal 20 Conjugate, PCV20 (Prevnar 20) Unknown Completed [facility] Zoster Vaccine Recombinant Unknown Completed [facility] Pneumococcal 20 Conjugate, PCV20 (Prevnar 20) Unknown Completed [facility] Zoster Vaccine Recombinant Unknown Completed [facility] Vital Signs Vital Name Observation Time Observation Value Comments S ource Systolic blood pressure 2024-01-29 19:09:00 132 mm[Hg] [facility] Diastolic blood pressure 2024-01-29 19:09:00 80 mm[Hg] [facility] Heart rate 2024-01-29 19:04:00 89 /min [facility] Body weight 2024-01-29 19:04:00 81.647 kg [facility] BMI 2024-01-29 19:04:00 29.05 kg/m2 [facility] Systolic blood pressure 2023-12-25 20:52:00 194 mm[Hg] [facility] Diastolic blood pressure 2023-12-25 20:52:00 100 mm[Hg] [facility] Heart rate 2023-12-25 20:47:00 83 /min Un[facility] Body weight 2023-12-25 20:47:00 81.194 kg [facility] BMI 2023-12-25 20:47:00 28.89 kg/m2 [facility] Body weight 2023-09-05 19:14:00 76.204 kg [facility] BMI 2023-09-05 19:14:00 27.12 kg/m2 [facility] Systolic blood pressure 2023-04-10 19:16:00 163 mm[Hg] [facility] Diastolic blood pressure 2023-04-10 19:16:00 81 mm[Hg] [facility] Heart rate 2023-04-10 19:16:00 80 /min [facility] Body temperature 2023-04-10 19:16:[address] [facility] Body height 2023-04-10 19:16:00 [facility].6 cm [facility] 2023-04-10 19:16:00 76.476 [facility] BMI 2023-04-10 19:16:00 27.21 kg/m2 [facility] Oxygen saturation in Arterial blood by Pulse oximetry 2023-04-10 19:16:00 94 /min [facility] Systolic blood pressure 2023-02-28 14:52:00 163 mm[Hg] [facility] Diastolic blood pressure 2023-02-28 14:52:00 82 mm[Hg] [facility] Heart rate 2023-02-28 14:51:00 73 /min [facility] Body temperature 2023-02-28 14:51:[address] [facility] Body weight 2023-02-28 14:51:00 75.751 [facility] BMI 2023-02-28 14:51:00 26.95 kg/m2 [facility] Systolic blood pressure 2023-02-07 13:16:00 158 mm[Hg] [facility] Diastolic blood pressure 2023-02-07 13:16:00 76 mm[Hg] [facility] Heart rate 2023-02-07 13:16:00 63 /min [facility] Body height 2023-02-07 13:16:00 167.6 cm [facility] Body weight 2023-02-07 13:16:00 74.753 kg [facility] BMI 2023-02-07 13:16:00 26.60 kg/m2 [facility] Systolic blood pressure 2023-01-09 15:06:00 138 mm[Hg] [facility] Diastolic blood pressure 2023-01-09 15:06:00 78 mm[Hg] [facility] Heart rate 2023-01-09 15:05:00 66 /min [facility] Body height 2023-01-09 15:05:00 167.6 cm [facility] Body weight 2023-01-09 15:05:00 74.39 kg [facility] 2023-01-09 15:05:00 26.47 kg/m2 [facility] Oxygen saturation in Arterial blood by Pulse oximetry 2023-01-09 15:05:00 96 /min [facility] Systolic blood pressure 2022-12-05 17:03:00 144 mm[Hg] [facility] Diastolic blood pressure 2022-12-05 17:03:00 76 mm[Hg] [facility] Heart rate 2022-12-05 17:02:00 70 /min Un[facility] Body temperature 2022-12-05 17:02:[address] [facility] Body height 2022-12-05 17:02:00 167.6 cm [facility] Body weight 2022-12-05 17:02:00 74.844 kg [facility] BMI 2022-12-05 17:02:00 26.63 kg/m2 [facility] Oxygen saturation in Arterial blood by Pulse oximetry 2022-12-05 17:02:00 96 /min [facility] Systolic blood pressure 2022-11-07 19:32:00 133 mm[Hg] [facility] Diastolic blood pressure 2022-11-07 19:32:00 69 mm[Hg] [facility] Heart rate 2022-11-07 19:31:00 91 /min Un[facility] Body temperature 2022-11-07 19:31:[address] [facility] Body height 2022-11-07 19:31:00 157.5 cm [facility] Body weight 2022-11-07 19:31:00 73.483 kg [facility] BMI 2022-11-07 19:31:00 29.63 kg/m2 [facility] Oxygen saturation in Arterial blood by Pulse oximetry 2022-11-07 19:31:00 98 /min [facility] Systolic blood pressure 2022-08-16 14:20:00 161 mm[Hg] [facility] Diastolic blood pressure 2022-08-16 14:20:00 89 mm[Hg] [facility] Heart rate 2022-08-16 14:20:00 62 /min [facility] Oxygen saturation in Arterial blood by Pulse oximetry 2022-08-16 14:20:00 97 /min [facility] Body weight 2022-08-16 14:08:00 74.027 kg [facility] BMI 2022-08-16 14:08:00 26.34 kg/m2 [facility] Systolic blood pressure 2022-08-04 15:01:00 211 mm[Hg] [facility] Diastolic blood pressure 2022-08-04 15:01:00 95 mm[Hg] [facility] Heart rate 2022-08-04 15:00:00 74 /min Un[facility] Body temperature 2022-08-04 15:00:[address] [facility] Respiratory rate 2022-08-04 15:00:00 16 /min [facility] Body height 2022-08-04 15:00:00 167.6 cm [facility] Body weight 2022-08-04 15:00:00 74.798 kg [facility] BMI 2022-08-04 15:00:00 26.62 kg/m2 [facility] Oxygen saturation in Arterial blood by Pulse oximetry 2022-08-04 15:00:00 98 /min [facility] Systolic blood pressure 2022-07-12 18:28:00 138 mm[Hg] [facility] Diastolic blood pressure 2022-07-12 18:28:00 90 mm[Hg] [facility] Heart rate 2022-07-12 18:28:00 84 /min [facility] Body temperature 2022-07-12 18:28:[address] [facility] Respiratory rate 2022-07-12 18:28:00 18 /min [facility] Body height 2022-07-12 18:28:00 167.6 cm [facility] Body weight 2022-07-12 18:28:00 71.668 kg [facility] BMI 2022-07-12 18:28:00 25.50 kg/m2 [facility] Systolic blood pressure 2022-06-28 15:53:00 138 mm[Hg] [facility] Diastolic blood pressure 2022-06-28 15:53:00 81 mm[Hg] [facility] Body temperature 2022-06-28 15:53:[address] [facility] Body height 2022-06-28 15:53:00 167.6 cm [facility] Body weight 2022-06-28 15:53:00 72.122 kg [facility] BMI 2022-06-28 15:53:00 25.66 kg/m2 [facility] Procedures Procedure Date / Time Performed Performing Clinician Source MEDICATION CORRESPONDENCE 2023-07-29 05:01:00 Do ctor Unassigned, [place] [facility] PATIENT QUESTIONNAIRE 2023-04-10 05:01:00 Doctor Unassigned, [place] [facility] PATIENT FINANCIAL POLICY 2023-01-09 14:46:46 Doctor Unassigned, [place] [facility] XR KNEE 3 VW LEFT 2022-08-04 15:36:00 Brijesh Tineo [facility] PATIENT QUESTIONNAIRE 2022-06-11 05:01:00 Doctor Unassigned, [place] [facility] Encounters Start Date/Time End Date/Time Encounter Type Admission Type Attending Clinicians Care Facility Care Department Encounter ID Source 2024-07-30 10:00:00 2024-07-30 10:00:00 Outpatient KERVIN EAGLE [facility] [id number] [facility] 2024-06-23 00:00:00 2024-06-23 16:11:21 Refill Kervin Burns [facility] 1.2.840.114 350.1.13.10 4.2.7.2.686 [id number] [facility] 2024-04-30 00:00:00 2024-04-30 11:43:07 Telephone Kervin Burns [facility] 1.2.840.114 350.1.13.10 4.2.7.2.686 [id number] [facility] 2024-04-09 00:00:00 2024-04-09 16:23:38 Nurse Triage [facility] 1.2.840.114 350.1.13.10 4.2.7.2.686 [id number] [facility] 2024-04-09 00:00:00 2024-04-09 10:08:[address] [facility] 1.2.840.114 350.1.13.10 4.2.7.2.686 [id number] [facility] 2024-03-23 00:00:00 2024-03-23 16:18:[address] [facility] 1.2.840.114 350.1.13.10 4.2.7.2.686 [id number] [facility] 2024-01-29 14:15:00 2024-01-29 14:30:[address] [facility] 1.2.840.114 350.1.13.10 4.2.7.2.686 [id number] [facility] 2024-01-29 14:15:00 2024-01-29 14:15:00 Outpatient R KERVIN BURNS [facility] [id number] [facility] 2023-12-25 15:00:00 2023-12-25 15:03:20 Outpatient KERVIN EAGLE [facility] [id number] [facility] 2023-12-25 15:00:00 2023-12-25 15:03:20 Office Visit Kervin Burns [facility] 1.2.840.114 350.1.13.10 4.2.7.2.686 [id number] [facility] 2023-09-05 13:00:00 2023-09-05 13:15:00 Office Visit Ronak Miller Craig L [facility] 1.2.840.114 350.1.13.10 4.2.7.2.686 [id number] [facility] 2023-09-05 13:00:00 2023-09-05 13:00:00 Outpatient BILL DUPREE CRAIG [facility] [id number] [facility] 2023-07-29 00:00:00 2023-07-29 00:00:00 Orders Only Doctor Unassigned, [place] [facility] 1.2.840.114 350.1.13.10 4.2.7.2.686 [id number] [facility] 2023-06-14 00:00:00 2023-06-14 00:00:00 Telephone Alexx Gee [facility] 1.2.840.114 350.1.13.10 4.2.7.2.686 [id number] [facility] 2023-04-29 00:00:00 2023-04-29 00:00:00 Telephone Marlen [facility] BU[facility] 1.2.840.114 350.1.13.10 4.2.7.2.686 [id number] [facility] 2023-04-10 14:30:00 2023-04-10 15:34:13 [facility] [id number] [facility] 2023-04-10 14:30:00 2023-04-10 14:45:00 Office [facility] 1.840.114 350.1.13.10 4.2.7.2.686 [id number] [facility] 2023-04-10 00:00:00 2023-04-10 00:00:00 Orders Only Doctor Unassigned, [place] [facility] 1.20.114 350.1.13.10 4.2.7.2.686 [id number] [facility] 2023-03-08 00:00:00 2023-03-08 00:00:00 Telephone Kervin Burns [facility] 1.84.114 350.1.13.10 4.2.7.2.686 [id number] [facility] 2023-02-28 10:00:00 2023-02-28 10:15:00 Office Visit Kervin Burns [facility] 1.84.114 350.1.13.10 4.2.7.2.686 [id number] [facility] 2023-02-28 10:00:00 2023-02-28 10:00:00 [facility] [facility] [id number] [facility] 2023-02-20 13:00:00 2023-02-20 13:00:00 Outpatient R COMPANADEGE ALEXX [facility] [id number] [facility] 2023-02-07 08:45:00 2023-02-07 09:00:00 Office Visit Bill Fairbanks [facility] MEDICAL OFFICE BUILDING 1.284.114 350.1.13.10 4.2.7.2.686 [id number] [facility] 2023-02-07 08:45:00 2023-02-07 08:45:00 Outpatient R FAIRBANKS BILL [facility] [id number] [facility] 2023-01-09 10:00:00 2023-01-09 10:38:28 [facility] [id number] [facility] 2023-01-09 10:00:00 2023-01-09 10:38:28 Office Visit Marlen [facility] PROFESSIO NAL BUILDING 1.840.114 350.1.13.10 4.2.7.2.686 [id number] [facility] 2023-01-09 00:00:00 2023-01-09 00:00:00 Orders Only Doctor Unassigned, [place] [facility] 1.840.114 350.1.13.10 4.2.7.2.686 [id number] [facility] 2023-01-09 00:00:00 2023-01-09 00:00:00 Telephone Kervin Burns [facility] 1.840.114 350.1.13.10 4.2.7.2.686 [id number] [facility] 2022-12-25 08:00:00 2022-12-25 08:00:00 Outpatient R MATT CANALES [facility] [id number] [facility] 2022-12-24 00:00:00 2022-12-24 00:00:00 Telephone Stella Urrutia [facility] 1.84.114 350.1.13.10 4.2.7.2.686 [id number] [facility] 2022-12-17 00:00:00 2022-12-17 00:00:00 Telephone Kervin Burns [facility] MED[facility] OFFICE BUILDING 1.840.114 350.1.13.10 4.2.7.2.686 [id number] [facility] 2022-12-11 13:15:00 2022-12-11 13:30:51 Outpatient R ALEXX GEE [facility] [id number] [facility] 2022-12-05 11:15:00 2022-12-05 11:30:00 Phone Circuit Operator Visit Lab, Emma Knutson PEND[facility] S[facility] MEDICAL OFFICE BUILDING 1.2.840.114 350.1.13.10 4.2.7.2.686 [id number] [facility] 2022-12-05 11:00:00 2022-12-05 11:15:47 Outpatient R EMMA VALLECILLO [facility] [id number] [facility] 2022-12-05 11:00:00 2022-12-05 11:15:47 Office Visit Emma Vallecillo [facility] 1.2.840.114 350.1.13.10 4.2.7.2.686 [id number] [facility] 2022-12-04 00:00:00 2022-12-04 00:00:00 Kervin Maldonado pallavi [facility] BUILDING 1.2.840.114 350.1.13.10 4.2.7.2.686 [id number] [facility] 2022-11-21 00:00:00 2022-11-21 00:00:00 Kervin Maldonado pallavi [facility] BUILDING 1.2.840.114 350.1.13.10 4.2.7.2.686 [id number] [facility] 2022-11-20 00:00:00 2022-11-20 00:00:00 Telephone Kervin Burns pallavi [facility] 1.840.114 350.1.13.10 4.2.7.2.686 [id number] [facility] 2022-11-09 00:00:00 2022-11-09 00:00:00 Case Management Emma Vallecillo Alexandro [facility] MEDICAL OFFICE BUILDING 1.84.114 350.1.13.10 4.2.7.2.686 [id number] [facility] 2022-11-09 00:00:00 2022-11-09 00:00:00 Telephone Ruth Ann Emma Alexandro [facility] MEDICAL OFFICE BUILDING 1.840.114 350.1.13.10 4.2.7.2.686 [id number] [facility] 2022-11-07 13:45:00 2022-11-07 15:01:20 Outpatient R EMMA VALLECILLO [facility] [id number] [facility] 2022-11-07 13:45:00 2022-11-07 15:01:20 Office Visit Ruth Ann Emma Alexandro [facility] MEDICAL OFFICE BUILDING 1.840.114 350.1.13.10 4.2.7.2.686 [id number] [facility] 2022-10-27 00:00:00 2022-10-27 00:00:00 Refill Kervin Burns pallavi [facility] PROFESSIO NAL BUILDING 1.840.114 350.1.13.10 4.2.7.2.686 [id number] [facility] 2022-08-31 00:00:00 2022-08-31 00:00:00 Refill Brijesh Tineo [facility] MEDICAL OFFICE BUILDING 1.0.114 350.1.13.10 4.2.7.2.686 [id number] [facility] 2022-08-16 09:30:00 2022-08-16 09:55:55 Outpatient R BILL FAIRBANKS [facility] [id number] [facility] 2022-08-16 09:30:00 2022-08-16 09:55:55 Office Visit Bill Fairbanks Amanda P[facility] MEDICAL OFFICE BUILDING 1.84.114 350.1.13.10 4.2.7.2.686 [id number] [facility] 2022-08-04 10:13:52 2022-08-04 23:59:00 Outpatient R BRIJESH TINEO [facility] [id number] [facility] 2022-08-04 10:13:52 2022-08-04 23:59:00 Hospital Encounter Brijesh Tineo P[facility] S[facility] MEDICAL OFFICE BUILDING 1.84.114 350.1.13.10 4.2.7.2.686 [id number] [facility] 2022-08-04 10:20:00 2022-08-04 10:40:00 Urgent Care Brijesh Tineo Unknown, Attending PEND[facility] S[facility] MEDICAL OFFICE BUILDING 1.840.114 350.1.13.10 4.2.7.2.686 [id number] [facility] 2022-07-12 13:30:00 2022-07-12 14:32:23 Outpatient R ALEXX GEE [facility] [id number] [facility] 2022-07-12 13:30:00 2022-07-12 14:32:23 Office Visit Alexx Gee Rm, Adc Surg Spec Procedure [facility] PROFESSIO NAL BUILDING 1.840.114 350.1.13.10 4.2.7.2.686 [id number] [facility] 2022-07-02 00:00:00 2022-07-02 00:00:00 Telephone Kervin Burns [facility] PROFESSIO NAL BUILDING 1.840.114 350.1.13.10 4.2.7.2.686 [id number] [id number] [facility] 2022-07-02 00:00:00 2022-07-02 00:00:00 Telephone Kervin Burns formerly [facility] 1.840.114 350.1.13.10 4.2.7.2.686 [id number] [facility] 2022-06-28 11:00:00 2022-06-28 11:15:[address] [facility] 1.840.114 350.1.13.10 4.2.7.2.686 [id number] [facility] 2022-06-28 11:00:00 2022-06-28 11:00:00 Outpatient R [facility]ON [facility] [id number] [facility] 2022-06-11 14:30:00 2022-06-11 15:43:00 Outpatient R MARLEN [facility] [id number] [facility] 2022-06-11 14:30:00 2022-06-11 15:43:00 [facility] 1.840.114 350.1.13.10 4.2.7.2.686 [id number] [facility] 2022-06-11 00:00:00 2022-06-11 00:00:00 Orders Only Doctor Unassigned, [place] [facility] 1.84.114 350.1.13.10 4.2.7.2.686 [id number] [facility] 2022-05-16 00:00:00 2022-05-16 00:00:[address] [facility] MEDICAL OFFICE BUILDING 1..840.114 350.1.13.10 4.2.7.2.686 [id number] [facility] 2022-04-16 00:00:00 2022-04-16 00:00:[address] [facility] MEDICAL OFFICE BUILDING 1..840.114 350.1.13.10 4.2.7.2.686 [id number] [facility] 2022-04-13 09:30:00 2022-04-13 09:45:00 Phone Circuit Operator Visit Lab, Олег Cardenasdixon [facility] MEDICAL OFFICE BUILDING 1..840.114 350.1.13.10 4.2.7.2.686 [id number] [facility] 2022-04-13 09:30:00 2022-04-13 09:30:00 Outpatient KERVIN EAGLE [facility] [id number] [facility] 2022-04-13 09:30:00 2022-04-13 09:30:00 Outpatient KERVIN EAGLE [facility] [id number] [facility] 2022-04-13 09:15:00 2022-04-13 09:15:[address] [facility] MEDICAL OFFICE BUILDING 1..840.114 350.1.13.10 4.2.7.2.686 [id number] [facility] 2022-04-13 00:00:00 2022-04-13 00:00:00 Letter (Out) Doctor Unassigned, [place] [facility] 1.2.84.114 350.1.13.10 4.2.7.2.686 [id number] [facility] 2022-03-13 08:00:00 2022-03-13 08:00:00 Outpatient MATT SANTIAGO [facility] [id number] [facility] 2022-03-08 00:00:00 2022-03-08 00:00:00 Telephone Kervin Burns [facility]ILD[facility] 1.840.114 350.1.13.10 4.2.7.2.686 [id number] [facility] 2022-02-19 14:00:00 2022-02-19 15:13:04 Outpatient KERVIN EAGLE [facility] [id number] [facility] 2022-02-19 14:00:00 2022-02-19 14:15:00 Office Visit ShellieKervin agosto [facility] 1.840.114 350.1.13.10 4.2.7.2.686 [id number] [facility] 2022-02-19 14:00:00 2022-02-19 14:00:00 Outpatient R KERVIN BURNS [facility] [id number] [facility] 2022-01-23 00:00:00 2022-01-23 00:00:00 Refill Kervin Burns [facility] PROFESSIO ON LICENSE OF [facility] OFFICE BUILDING ONE .84.114 350.1.13.10 4.2.7.2.686 [id number] [facility] 2022-01-16 14:00:00 2022-01-16 14:15:00 [facility] 1.84.114 350.1.13.10 4.2.7.2.686 [id number] [facility] 2022-01-16 14:00:00 2022-01-16 14:00:00 Outpatient KERVIN EAGLE [facility] [id number] [facility] 2021-11-22 00:00:00 2021-11-22 00:00:00 Perry Turner [facility] OFFICE BUILDING ONE 1..114 350.1.13.10 4.2.7.2.686 [id number] [facility] 2021-10-26 00:00:00 2021-10-26 00:00:00 Milanasky Burns [facility] OFFICE BUILDING ONE 1.84.114 350.1.13.10 4.2.7.2.686 [id number] 044 [id number] [facility] 2021-07-27 00:00:00 2021-07-27 00:00:00 Milanasky Turner [facility] Office Building One ..114 350.1.13.10 4.2.7.2.686 [id number] [facility] 2021-06-25 00:00:00 2021-06-25 00:00:00 Perry Turner [facility] Office Building One ..114 350.1.13.10 4.2.7.2.686 [id number] [facility] 2021-05-26 00:00:00 2021-05-26 00:00:00 Perry Burns [facility] Office Building One ..114 350.1.13.10 4.2.7.2.686 [id number] [id number] [facility] 2021-04-04 15:08:56 2021-04-04 15:34:42 Office Visit Kervin Burns [facility] Office Building One 1.840.114 350.1.13.10 4.2.7.2.686 [id number] [facility] 2021-04-04 15:15:00 2021-04-04 15:15:00 Outpatient R KERVIN BURNS [facility] [id number] [facility] 2021-01-07 00:00:00 2021-01-07 00:00:00 Refill Kervin Burns [facility] Office Building One 1.840.114 350.1.13.10 4.2.7.2.686 [id number] [facility] 2020-12-07 00:00:00 2020-12-07 00:00:00 Refill Kervin Burns [facility] Office Building One 1.84.114 350.1.13.10 4.2.7.2.686 [id number] [facility] 2020-12-05 00:00:00 2020-12-05 00:00:00 Refill Shelliesurendra Kervin [facility] Office Building One 1..114 350.1.13.10 4.2.7.2.686 [id number] [facility] 2020-11-06 00:00:00 2020-11-06 00:00:00 Refill Kervin Burns [facility] Office Building One 1.840.114 350.1.13.10 4.2.7.2.686 [id number] [id number] [facility] 2020-08-29 15:50:30 2020-08-29 16:05:30 Office Visit Kervin Burns [facility] Office Building One 1.840.114 350.1.13.10 4.2.7.2.686 [id number] [facility] 2020-08-29 15:45:00 2020-08-29 15:45:00 Outpatient Destiny KERVIN BURNS [facility] [id number] [facility] 2020-07-25 00:00:00 2020-07-25 00:00:00 Refsky Burns [facility] Office Building One 1.840.114 350.1.13.10 4.2.7.2.686 [id number] [facility] 2020-07-12 00:00:00 2020-07-12 00:00:00 Perry Burns [facility] Office Building One 1.840.114 350.1.13.10 4.2.7.2.686 [id number] 044 [id number] [facility] 2020-06-05 00:00:00 2020-06-05 00:00:00 Perry Burns [facility] Office Building One 1.2840.114 350.1.13.10 4.2.7.2.686 [id number] [facility] 2020-05-24 00:00:00 2020-05-24 00:00:00 RefBill Rashid [facility] 1.2.840.114 350.1.13.10 4.2.7.2.686 [id number] [facility] 2020-03-16 00:00:00 2020-03-16 00:00:00 Bill Jaramillo [facility] 1.2.840.114 350.1.13.10 4.2.7.2.686 [id number] [facility] 2020-01-20 00:00:00 2020-01-20 00:00:00 Telephone Bill Fairbanks [facility] Surgical Specialti bebo Joyce 1.2.840.114 350.1.13.10 4.2.7.2.686 [id number] [facility] 2020-01-08 00:00:00 2020-01-08 00:00:00 Kervin Maldonado [facility] Office Building One 1.2.840.114 350.1.13.10 4.2.7.2.686 [id number] [id number] [facility] 2019-12-22 00:00:00 2019-12-22 00:00:00 Telephone Bill Fairbanks [facility] Surgical Specialerasto Joyce 1.2.840.114 350.1.13.10 4.2.7.2.686 [id number] [facility] 2019-12-18 00:00:00 2019-12-18 00:00:00 Telephone Bill Fairbanks [facility] Surgical Special bebo [place] 1.2.840.114 350.1.13.10 4.2.7.2.686 [id number] [facility] 2019-12-16 00:00:00 2019-12-16 00:00:00 Telephone Duane Fairbanksig Amanda [facility] Building 1.2.840.114 350.1.13.10 4.2.7.2.686 [id number] [facility] 2019-12-14 15:00:00 2019-12-14 15:00:00 Outpatient R BILL FAIRBANKS [facility] [id number] [facility] 2019-12-14 14:30:01 2019-12-14 14:47:21 Office Visit Bill Fairbanks [facility] Surgical Specialti bebo Joyce 1.2.840.114 350.1.13.10 4.2.7.2.686 [id number] [facility] 2019-12-14 00:00:00 2019-12-14 00:00:00 Orders Only Doctor Unassigned, [place] [facility] 1.2.840.114 350.1.13.10 4.2.7.2.686 [id number] [facility] 2019-11-19 00:00:00 2019-11-19 00:00:00 Orders Only Doctor Unassigned, [place] [facility] 1.2840.114 350.1.13.10 4.2.7.2.686 [id number] [facility] 2019-05-22 10:11:53 2019-05-22 10:26:53 Office Visit Kervin Burns [facility] Office Building One 1..840.114 350.1.13.10 4.2.7.2.686 [id number] [facility] 2019-05-22 00:00:00 2019-05-22 00:00:00 Orders Only Doctor Unassigned, [place] [facility] 1.2840.114 350.1.13.10 4.2.7.2.686 [id number] [facility] Notes Date/Time Note Provider Source 2024-04-30 11:37:33 Sandi Bellamy is a 73 year old male Carine with [employer] is requesting to speak with clinic nurse regarding patient hosp fu and concerns. Please contact when available at direct number of [phone] Joan Powers [facility] 2024-04-09 15:47:00 Regarding: Blood in pee x today ----- Message from Bridget Tapia sent at 04/09/2024 3:46 PM CDT ----- Sandi Bellamy is a 73 year old male or post op (no) -Number of weeks NA -Date of Surgery NA Language: Ghanaian Specific Symptoms: Clear pee, but blood present Specific Duration: This afternoon. Shade Arnett RN [facility] 2024-04-09 15:47:00 Adult Triage Assessment Last Clinic Visit: 01/29/24, office visit- Essential HTN Primary Symptom: blood in urine Onset / Duration: today Location / Description: , [facility] and after discharge with clear urine, his urine this evening was bright red without clots or pain. Pain / Severity: 0/10 Associated Symptoms: denies all other symptoms reported Fever / Method: no fever Hydration: 3 cups of coffee today, and last void was 45 minutes ago, with bright red blood in urine. Treatment so far: took 2 ibuprofen tablets before symptoms Effect on ADL's: able to perform daily activities without hindrence Pre-existing condition / Immunocompromised: Past Medical History: Diagnosis Date Hypertension Sandi Bellamy is a 73 year old male Calling today regarding blood in urine after hospital [...] right to refuse disposition. Call back information provided. Shade Arnett MSN, RN Registered Nurse [facility] Reason for Disposition Passing pure blood or large blood clots (i.e., size > a dime) (Exception: sergio or small strands) Protocols used: Urine - Blood In-ADULT- [facility] 2024-04-09 09:23:22 Radiology report from [facility]. Printed and placed in provider's box. Kellie Ramirez [facility] 2024-03-23 13:44:57 No results found for: "HSVG1", "HSVG2" Notes: 02/28/23 Last Refilled: [id number] [place], [place] - [address] [facility] [address] Recent Visits Date Type Provider Dept 01/29/24 Office Visit Kervin Burns MD [facility] 12/25/23 Office Visit Kervin Burns MD [facility] 02/28/23 Office Visit Kervin Burns MD [facility] 12/05/22 Office Visit Emma Vallecillo MD [facility] 11/07/22 Office Visit Emma Vallecillo MD [facility] Showing recent visits within past 540 days with a meds authorizing provider and meeting all other requirements Future Appointments Date Type Provider Dept 07/30/24 Appointment Kervin Burns MD [facility] Showing future appointments within next 150 days with a meds authorizing provider and meeting all other requirements Merary Myrick MA [facility] 2024-03-23 11:41:59 Sandi Bellamy is a 73 year old male Patient called stating he needs a refill of Valtrex. Please contact [phone] (home) [id number] [address] AT [facility] [address] ' [facility] 2023-06-14 09:40:17 Formatting of this n ote might be different from the original. Patient notified medication has been sent. Instructed to follow up with pharmacy. Offered telephone number, however patient not able to write it down at this time. Patient will contact the clinic for number. ABEL GARNETT Yady Ortiz RN [facility] 2023-06-14 09:01:54 Formatting of this n ote might be different from the original. Pt is running out of medication for ED issues and was told they would be mailed to his house. He still has not received anything and would like a call back regarding this. Please advise [facility]
[2024-06-25] MEDS ORDERED: CEFTRIAXONE 1000 MG/VIAL ONE (02:43)
[2024-06-25] MEDS ORDERED: ONDANSETRON 4 MG/2 ML VIAL ONE (02:43)
[2024-06-25] MEDS ORDERED: MORPHINE 2 MG/ML SYR ONE (02:44)
[2024-06-25] MEDS ORDERED: TAMSULOSIN 0.4 MG SR CAP ONE (02:44)
[2024-06-25 03:07] LABS: Absolute Eosinophils 0.2 K/uL (0-0.5); Absolute Lymphocytes (CBC) 1.2 K/uL (0.7-4.9); Absolute Monocytes 0.6 K/uL (0.1-1.3); Absolute Neutrophil 2.9 K/uL (1.8-8.0); Eosinophils % 4.6 % (0-4.4); Hematocrit 42.5 % (39.6-49.0); Hemoglobin 14.1 g/dL (13.6-17.9); Lymphocytes % 24.1 % (15.3-44.8); MCH 31.8 pg (27.0-35.0); MCHC 33.2 g/dL (32.0-36.0); Neutrophils % 57.3 % (41.7-73.7); Nucleated Red Blood Cells % 0.2 % (0-0); PT Prothrombin Time 10.2 SECONDS (9.4-12.5); Platelets 221 thou/uL (152-406); Protime INR 0.91; RBC Red Blood Cell Count 4.43 M/uL (4.33-5.43)
[2024-06-25 03:08] LABS: Renal Epithelial <5 /HPF (None Seen); Specific Gravity 1.005 (1.005-1.030); Sqamous Epithelial None Seen /HPF (None Seen); Urine Bacteria <20 /HPF (<20); Urine Bilirubin NEGATIVE (Negative); Urine Blood 3+ (OVER) (Negative); Urine Clarity Turbid (Clear); Urine Color Colorless (Yellow); Urine Culture Reflex Order NOT NEEDED; Urine Glucose NEGATIVE (Negative); Urine Ketones NEGATIVE (Negative); Urine Microscopic Reflex YN ORDER UMIC; Urine Nitrite NEGATIVE (Negative); Urine Protein 1+ (Negative); Urine Urobilinogen Normal (Normal); Urine WBC <5 /HPF (<5)
[2024-06-25 03:16] LABS: Albumin 3.7 g/dL (3.4-5.0); Albumin/Globulin Ratio 1.2 (1.1-1.8); Anion Gap 10.8 mEq/L (5.0-15.0); Bilirubin Total 0.2 mg/dL (0.2-1.0); Globulin 3.2 g/dL (2.3-3.5); Potassium 3.8 mEq/L (3.5-5.1); Protein, Total 6.9 g/dL (6.4-8.2)
[2024-06-25] MEDS ORDERED: CIPROFLOXACIN HCL 500 MG TAB ONE (03:38)
--- NOTE | 2024-06-25 03:41 | ER ---
Nurse's Notes [facility] Name: Lavell Bellamy Age: 73 yrs Sex: Male : 1950 Arrival Date: 06/25/2024 Time: 01:48 Bed 3 Private MD: Diagnosis: Other retention of urine-900 cc;UTI/ Urinary tract infection, site not specified;Hematuria, unspecified Presentation: 06/25 01:55 Chief complaint: Patient states: I am having difficulty urinating, blood in the urine. ha1 this have been going on for over a month. 01:55 Coronavirus screen: Vaccine status: Patient reports being unvaccinated. Ebola Screen: ha1 No symptoms or risks identified at this time. Initial Sepsis Screen: Does the patient meet any 2 criteria? No. Patient's initial sepsis screen is negative. Does the patient have a suspected source of infection? No. Patient's initial sepsis screen is negative. Risk Assessment: Do you want to hurt yourself or someone else? Patient reports no desire to harm self or others. Onset of symptoms was June 25, 2024. 01:55 Method Of Arrival: Wheelchair ha1 01:55 Acuity: JOHANNY 3 ha1 Triage Assessment: 01:55 General: Appears uncomfortable, Behavior is cooperative. Pain: Complains of pain in ha1 pelvis Pain does not radiate. Pain currently is 9 out of 10 on a pain scale. Quality of pain is described as heavy, pressure, Pain began gradually. Neuro: Level of Consciousness is awake, alert, obeys commands, Oriented to person, place, time, situation. Cardiovascular: Capillary refill < 3 seconds Patient's skin is warm and dry. Respiratory: Airway is patent Respiratory effort is even, unlabored, Respiratory pattern is regular, symmetrical. GI: Abdomen is round non-distended, Bowel sounds present X 4 quads. : Reports inability to void, hematuria. Derm: Skin is pink, warm \T\ dry. Musculoskeletal: Circulation, motion, and sensation intact. Historical: - Allergies: 02:04 NKA; ha1 - Home Meds: 02:04 valacyclovir 500 mg Oral tablet daily [Active]; hydrochlorothiazide 25 mg Oral tablet ha1 [Active]; aspirin 81 mg Oral capsule [Active]; lisinopril 20 mg Oral tablet [Active]; - PMHx: 02:04 Hypertensive disorder; ha1 - PSHx: 02:04 hernia repair; ha1 - Immunization history:: Adult Immunizations not up to date. - Infectious Disease History:: Denies. - Social history:: Smoking status: Patient denies any tobacco usage or history of. - Family history:: not pertinent. Screenin:06 [facility] ED Fall Risk Assessment (Adult) History of falling in the last 3 months, ha1 including since admission No falls in past 3 months (0 pts) Confusion or Disorientation No (0 pts) Intoxicated or Sedated No (0 pts) Impaired Gait No (0 pts) Mobility Assist Device Used No (0 pt) Altered Elimination No (0 pt) Score/Fall Risk Level 0 - 2 = Low Risk Oriented to surroundings, Maintained a safe environment, Educated pt \T\ family on fall prevention, incl call for assistance when getting out of bed, Hourly rounding (assess needs \T\ fall precautionary measures) done. Abuse screen: Denies threats or abuse. Denies injuries from another. Nutritional screening: No deficits noted. Tuberculosis screening: No symptoms or risk factors identified. Assessment: 01:55 Reassessment: see triage assessment. GI: Abdomen is round non-distended, Bowel sounds ha1 present X 4 quads. Abd is soft and non tender X 4 quads. : Urine is blood tinged, Reports inability to void. 01:55 General: Appears uncomfortable, Behavior is cooperative. ha1 02:20 Reassessment: Patient and/or family updated on plan of care and expected duration. Pain ha1 level reassessed. Patient is alert, oriented x 3, equal unlabored respirations, skin warm/dry/pink. pain 5/10 Patient states feeling better. Patient states symptoms have improved. 03:20 Reassessment: Patient and/or family updated on plan of care and expected duration. Pain ha1 level reassessed. Patient is alert, oriented x 3, equal unlabored respirations, skin warm/dry/pink. Patient denies pain at this time. Patient states feeling better. Patient states symptoms have improved. Vital Signs: 01:55 BP 193 / 104; Pulse 82; Resp 17; Temp 97.6(O); Pulse Ox 98% on R/A; Weight 83.01 kg; ha1 Height 5 ft. 6 in. ; 02:38 BP 152 / 79; Pulse 72; Resp 17; Pulse Ox 95% ; vc1 03:20 BP 151 / 83; Pulse 67; Resp 17 S; Pulse Ox 97% on R/A; ha1 01:55 Body Mass Index 29.54 (83.01 kg, 167.64 cm) ha1 ED Course: 01:51 Patient arrived in ED. [id number] 01:53 Ang Corbin MD is Attending Physician. ignacio 01:55 Patient has correct armband on for positive identification. Placed in gown. Bed in low ha1 position. Call light in reach. Side rails up X 1. 02:00 Ibarra cath inserted, using sterile technique, 18 Fr., by hi, balloon inflated, to ha1 gravity drainage, urine specimen collected. returned bloody urine. Patient tolerated well. 02:03 Triage completed. ha1 02:20 Inserted saline lock: 20 gauge in right antecubital area, using aseptic technique. ha1 Blood collected. Flushed with 10 mL NS. 02:37 Gloria Nova RN is Primary Nurse. ha1 02:37 Urinalysis w/ reflexes Sent. ha1 02:37 Comprehensive Metabolic Panel Sent. ha1 02:37 CBC with Diff Sent. ha1 02:38 PT-INR Sent. ha1 02:39 Arm band placed on left wrist. vc1 02:44 CT Stone Protocol In Process Unspecified. EDMS 03:30 Provided Education on: Ibarra catheter care and following up with urology . ha1 03:40 Ramesh Garcia MD is Referral Physician. [facility] 03:57 No provider procedures requiring assistance completed. IV discontinued, intact, ha1 bleeding controlled, No redness/swelling at site. Pressure dressing applied. Administered Medications: 02:48 Drug: Ondansetron IVP 4 mg IVP once; over 2 minutes Route: IVP; Site: right antecubital;ha1 03:15 Follow up: Response: No adverse reaction; Marked relief of symptoms ha1 02:50 Drug: morphine IVP or IV 2 mg IVP once over 4 mins Route: IVP; Infused Over: 4 mins; ha1 Site: right antecubital; 03:15 Follow up: Response: No adverse reaction; Marked relief of symptoms; Pain is decreased; ha1 RASS: Alert and Calm (0) 02:55 Drug: Flomax PO 0.4 mg PO once Route: PO; ha1 03:15 Follow up: Response: No adverse reaction ha1 02:58 Drug: Rocephin IV 1 grams IV at per protocol once; Given slow IV push per pharmacy ha1 instructions Route: IV; Rate: per protocol; Site: right antecubital; 03:15 Follow up: Response: No adverse reaction; IV Status: Completed infusion; IV Intake: [id number] 03:38 Drug: Ciprofloxacin PO 500 mg PO once Route: PO; ha1 03:56 Follow up: Response: No adverse reaction ha1 03:46 Not Given (Patient Refused): morphineor iv 2 mg IVP once over 4 mins ha1 Medication: 02:07 VIS not applicable for this client. ha1 Intake: 03:15 IV: 50ml; Total: 50ml. ha1 Output: 02:05 Urine: 900ml (Ibarra); Total: 900ml. ha1 Outcome: 03:40 Discharge ordered by MD. pierre 03:57 Discharged to home ambulatory, ha1 03:57 Condition: stable 03:57 Discharge instructions given to patient, Instructed on discharge instructions, follow up and referral plans. medication usage, Demonstrated understanding of instructions, follow-up care, medications, Prescriptions given X 2, 03:59 Patient left the ED. ha1 Signatures: Dispatcher [employer] EDMS Ang Corbin MD MD cha Jeffries, Jennifer [id number] Adry Joy, RN RN vc1 Gloria Nova, KATIE RN ha1 Corrections: (The following items were deleted from the chart) 02:39 02:38 BP 152 / ???; Pulse 72bpm; Resp 17bpm; Pulse Ox 95%; vc1 vc1
--- NOTE | 2024-06-25 03:41 | EDPHYS ---
Physician Documentation [facility] Name: Lavell Bellamy Age: 73 yrs Sex: Male : 1950 Arrival Date: 06/25/2024 Time: 01:48 Bed 3 Private MD: Ang Moon HPI: 06/25 02:27 This 73 yrs old Male presents to ER via Wheelchair with complaints of ignacio Abdominal Pain, HEMATURIA. 02:27 The patient presents with abdominal pain in the lower abdomen. Onset: The ignacio symptoms/episode began/occurred 1 day(s) ago. The patient presents with urinary symptoms, dysuria, urinary frequency, hesitancy to initiate urine stream, retention, unable to void. Onset: The symptoms/episode began/occurred 1 day(s) ago. Modifying factors: The symptoms are alleviated by nothing, the symptoms are aggravated by nothing. Associated signs and symptoms: The patient has no apparent associated signs or symptoms. Modifying factors: The symptoms are alleviated by nothing, the symptoms are aggravated by nothing. Historical: - Allergies: 02:04 NKA; ha1 - Home Meds: 02:04 valacyclovir 500 mg Oral tablet daily [Active]; hydrochlorothiazide 25 mg Oral tablet ha1 [Active]; aspirin 81 mg Oral capsule [Active]; lisinopril 20 mg Oral tablet [Active]; - PMHx: 02:04 Hypertensive disorder; ha1 - PSHx: 02:04 hernia repair; ha1 - Immunization history:: Adult Immunizations not up to date. - Infectious Disease History:: Denies. - Social history:: Smoking status: Patient denies any tobacco usage or history of. - Family history:: not pertinent. ROS: 02:27 Constitutional: Negative for fever, chills, and weight loss, Eyes: Negative for injury, ignacio pain, redness, and discharge, ENT: Negative for injury, pain, and discharge, Neck: Negative for injury, pain, and swelling, Cardiovascular: Negative for chest pain, palpitations, and edema, Respiratory: Negative for shortness of breath, cough, wheezing, and pleuritic chest pain, Back: Negative for injury and pain, MS/Extremity: Negative for injury and deformity, Skin: Negative for injury, rash, and discoloration, Neuro: Negative for headache, weakness, numbness, tingling, and seizure, Psych: Negative for depression, anxiety, suicide ideation, homicidal ideation, and hallucinations, Allergy/Immunology: Negative for hives, rash, and allergies, Endocrine: Negative for neck swelling, polydipsia, polyuria, polyphagia, and marked weight changes, Hematologic/Lymphatic: Negative for swollen nodes, abnormal bleeding, and unusual bruising, : Abdomen/GI: Positive for abdominal pain, abdominal cramps, abdominal distension, of the suprapubic area, right lower quadrant and left lower quadrant, : : Positive for urinary frequency, small amounts, hematuria, burning with urination, difficulty urinating, Exam: : Constitutional: This is a well developed, well nourished patient who is awake, alert, ignacio and in no acute distress. Head/Face: Normocephalic, atraumatic. Eyes: Pupils equal round and reactive to light, extra-ocular motions intact. Lids and lashes normal. Conjunctiva and sclera are non-icteric and not injected. Cornea within normal limits. Periorbital areas with no swelling, redness, or edema. ENT: Nares patent. No nasal discharge, no septal abnormalities noted. Tympanic membranes are normal and external auditory canals are clear. Oropharynx with no redness, swelling, or masses, exudates, or evidence of obstruction, uvula midline. Mucous membranes moist. Neck: Trachea midline, no thyromegaly or masses palpated, and no cervical lymphadenopathy. Supple, full range of motion without nuchal rigidity, or vertebral point tenderness. No Meningismus. Chest/axilla: Normal chest wall appearance and motion. Nontender with no deformity. No lesions are appreciated. Cardiovascular: Regular rate and rhythm with a normal S1 and S2. No gallops, murmurs, or rubs. Normal PMI, no JVD. No pulse deficits. Respiratory: Lungs have equal breath sounds bilaterally, clear to auscultation and percussion. No rales, rhonchi or wheezes noted. No increased work of breathing, no retractions or nasal flaring. Back: No spinal tenderness. No costovertebral tenderness. Full range of motion. Male : Normal genitalia with no discharge or lesions. Skin: Warm, dry with normal turgor. Normal color with no rashes, no lesions, and no evidence of cellulitis. MS/ Extremity: Pulses equal, no cyanosis. Neurovascular intact. Full, normal range of motion. Neuro: Awake and alert, GCS 15, oriented to person, place, time, and situation. Cranial nerves II-XII grossly intact. Motor strength 5/5 in all extremities. Sensory grossly intact. Cerebellar exam normal. Normal gait. Psych: Awake, alert, with orientation to person, place and time. Behavior, mood, and affect are within normal limits. 02:27 Abdomen/GI: Inspection: distension, that is mild, Bowel sounds: normal, Palpation: moderate abdominal tenderness, in the suprapubic area, right lower quadrant and left lower quadrant, Liver: no appreciated palpable abnormalities, Hernia: not appreciated, Vital Signs: 01:55 BP 193 / 104; Pulse 82; Resp 17; Temp 97.6(O); Pulse Ox 98% on R/A; Weight 83.01 kg; ha1 Height 5 ft. 6 in. ; 02:38 BP 152 / 79; Pulse 72; Resp 17; Pulse Ox 95% ; vc1 03:20 BP 151 / 83; Pulse 67; Resp 17 S; Pulse Ox 97% on R/A; ha1 01:55 Body Mass Index 29.54 (83.01 kg, 167.64 cm) ha1 MDM: 01:53 Patient medically screened. ignacio 02:29 Differential diagnosis: nonspecific abdominal pain, UTI, urinary retention, ignacio prostatitis, urethritis, non-specific abd pain, urinary tract infection. Data reviewed: vital signs, nurses notes, lab test result(s), radiologic studies, CT scan. Consideration of Admission/Observation Escalation of care including admission/observation considered. I considered the following discharge prescriptions or medication management in the emergency department Medications were administered in the Emergency Department. See MAR. Independent interpretation of the following test(s) in the Emergency Department CT Scan: My interpretation is CT STONE. Test considered but Not performed: Ultrasound NO ABD USG. Historians other than the Patient: PT WELL INFORMED. Care significantly affected by the following chronic conditions: Hypertension, Obesity. Counseling: I had a detailed discussion with the patient and/or guardian regarding the historical points, exam findings, and any diagnostic results supporting the discharge/admit diagnosis, the presence of at least one elevated blood pressure reading (>120/80) during this emergency department visit, lab results, radiology results, the need for outpatient follow up, for definitive care, a family practitioner, a urologist. 06/25 02:13 Order name: CBC with Diff; Complete Time: 03:30 [facility] 06/25 02:13 Order name: Comprehensive Metabolic Panel; Complete Time: 03:30 [facility] 06/25 02:13 Order name: Urinalysis w/ reflexes; Complete Time: 03:30 [facility] 06/25 02:13 Order name: PT-INR; Complete Time: 03:30 [facility] 06/25 02:25 Order name: CT Stone Protocol [facility] 06/25 02:13 Order name: IV Saline Lock - Large Bore; Complete Time: 02:37 [facility] 06/25 02:14 Order name: Ibarra; Complete Time: 02:37 [facility] 06/25 02:14 Order name: Leg Bag; Complete Time: 03:46 [facility] Administered Medications: 02:48 Drug: Ondansetron IVP 4 mg IVP once; over 2 minutes Route: IVP; Site: right antecubital;ha1 03:15 Follow up: Response: No adverse reaction; Marked relief of symptoms ha1 02:50 Drug: morphine IVP or IV 2 mg IVP once over 4 mins Route: IVP; Infused Over: 4 mins; ha1 Site: right antecubital; 03:15 Follow up: Response: No adverse reaction; Marked relief of symptoms; Pain is decreased; ha1 RASS: Alert and Calm (0) 02:55 Drug: Flomax PO 0.4 mg PO once Route: PO; ha1 03:15 Follow up: Response: No adverse reaction ha1 02:58 Drug: Rocephin IV 1 grams IV at per protocol once; Given slow IV push per pharmacy ha1 instructions Route: IV; Rate: per protocol; Site: right antecubital; 03:15 Follow up: Response: No adverse reaction; IV Status: Completed infusion; IV Intake: [id number] 03:38 Drug: Ciprofloxacin PO 500 mg PO once Route: PO; ha1 03:56 Follow up: Response: No adverse reaction ha1 03:46 Not Given (Patient Refused): morphineor iv 2 mg IVP once over 4 mins ha1 Disposition Summary: 06/25/24 03:40 Discharge Ordered Notes: Location: Home ignacio Problem: new ignacio Symptoms: have improved ignacio Condition: Stable ignacio Diagnosis - Other retention of urine - 900 cc ignacio - UTI/ Urinary tract infection, site not specified ignacio - Hematuria, unspecified ignacio Followup: ignacio - With: Private Physician - When: 2 - 3 days - Reason: Recheck today's complaints, Continuance of care, Re-evaluation by your physician Followup: ignacio - With: Ramesh Garcia MD - When: 2 - 3 days - Reason: Recheck today's complaints, Re-evaluation by your physician Discharge Instructions: - Discharge Summary Sheet ignacio - Dysuria ignacio - Hematuria, Adult ignacio - Acute Urinary Retention, Male ignacio - Urinary Tract Infection, Adult ignacio - Urinary Tract Infection, Adult, [id number] ignacio - Acute Urinary Retention, Male, [id number] ignacio - Antibiotic Medicine, Adult, [id number] [facility] Forms: - Medication Reconciliation Form ignacio - Antibiotic Education ignacio - Prescription Opioid Use [facility] - Patient Portal Instructions [facility] - Leadership Thank You Letter [facility] Prescriptions: - Flomax 0.4 mg Oral capsule - take 1 capsule ORAL route every evening; 30 capsule; Refills: 0, Product [facility] Selection Permitted - Cipro 250 mg Oral tablet - take 1 tablet ORAL route every 12 hours; 14 tablet; Refills: 0, Product [facility] Selection Permitted Signatures: Dispatcher [employer] Ang Fraser MD MD cha Ayala, Heidy, RN RN ha1 Corrections: (The following items were deleted from the chart) 02:26 02:26 Stone Protocol+[id number].[email or web address] ordered. PHAM NATH
[2024-06-25 04:09] VITALS: TEMP 97.6
[2024-06-25 04:25] VITALS: BP 151/83; O2SAT 97
--- NOTE | 2024-06-25 11:28 | RAD REPORT ---
EXAM DESCRIPTION: CT - Stone Protocol - 06/25/2024 6:55 am CLINICAL HISTORY: The patient is 73 years old and is Male; Abd pain;Flank pain;Hematuria TECHNIQUE: Axial computed tomography images of the abdomen and pelvis without intravenous contrast. Sagittal and coronal reformatted images were created and reviewed. This CT exam was performed usi ng one or more of the following dose reduction techniques: automated exposure control, adjustment o f the mA and/or kV according to patient size, and/or use of iterative reconstruction technique. COMPARISON: No relevant prior studies available. FINDINGS: Lung bases: Unremarkable. No mass. No consolidation. Pleural space: Bilateral pleural calcifications. ABDOMEN: Liver: Unremarkable. Gallbladder and bile ducts: Unremarkable. No calcified stones. No ductal dilation. Pancreas: Unremarkable. No ductal dilation. Spleen: Unremarkable. No splenomegaly. Adrenals: Unremarkable. No mass. Kidneys and ureters: Mild bilateral perinephric stranding, nonspecific. No nephrolithiasis, hydro nephrosis or ureter stone. Stomach and bowel: Colonic diverticulosis. No bowel dilatation or obstruction. No bowel wall thickening. Air-fluid level in the stomach. No gastric wall thickening. PELVIS: Appendix: The visualized appendix is normal. No pericecal inflammation to suggest acute appendici tis. Bladder: Ibarra catheter in the bladder with a minimal amount of hyperdense urine. The bladder is otherwise collapsed. No stones. Reproductive: Portable prostate gland enlargement. Bilateral hydroceles. ABDOMEN and PELVIS: Intraperitoneal space: Unremarkable. No free air. No significant fluid collection. Bones/joints: Degenerative disc disease L4-5 and L5-S1. Bilateral L5 spondylolysis with grade 1 s pondylolisthesis L5-S1. No acute fracture. No dislocation. Soft tissues: Unremarkable. Vasculature: Unremarkable. No abdominal aortic aneurysm. Lymph nodes: No pathologically enlarged lymph nodes. IMPRESSION: 1. Mild bilateral perinephric stranding, nonspecific. No nephrolithiasis, hydronephros is or ureter stone. 2. Ibarra catheter in the bladder with a minimal amount of hyperdense urine, suggesting hematuria. T he bladder is otherwise collapsed. 3. Colonic diverticulosis. 4. 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 5. Additional non-emergent findings as above. Electronically signed by: Harriet Davis MD 06/25/2024 04:15 AM CDT ND Due to temporary technical issues with the PACS/Fluency reporting system, reports are being signed by the in house radiologist without review as a courtesy to ensure prompt reporting. The interpreting r adiologist is fully responsible for the content of the report.
== END 2024-06-25 03:59 | disposition home or self-care (01) ==
LOC: ER 01:48
DX: N39.0 Urinary tract infection, site not specified (principal); R31.9 Hematuria, unspecified; I10 Essential (primary) hypertension; Z79.82 Long term (current) use of aspirin
CPT/HCPCS: 96365; 85025; 81001; 36415; 85610; 80053; 76377; 74176; 51702; 96375; 99285; J2270; J2405; J0696